=== PATIENT | female | born 1955 | race Caucasian/White ===

== ENCOUNTER → 2019-05-09 12:57 | Outpatient (BNVA) | payer MEDICARE, MEDICAID, SELFPAY | PROVIDERS: Family Provider Family Medicine; PCP Family Medicine; Visit Provider Anesthesiology | DX: M54.16 Radiculopathy, lumbar region (principal); M54.12 Radiculopathy, cervical region; M79.7 Fibromyalgia; G43.709 Chronic migraine without aura, not intractable, without status migrainosus; F17.210 Nicotine dependence, cigarettes, uncomplicated; Z79.891 Long term (current) use of opiate analgesic | CPT/HCPCS: 99214 ==

== ENCOUNTER → 2019-06-28 13:51 | Outpatient (BNVA) | payer MEDICARE, MEDICAID, SELFPAY | PROVIDERS: Family Provider Family Medicine; PCP Family Medicine; Visit Provider Anesthesiology | DX: M54.16 Radiculopathy, lumbar region (principal); M54.12 Radiculopathy, cervical region; F17.210 Nicotine dependence, cigarettes, uncomplicated; Z79.891 Long term (current) use of opiate analgesic | CPT/HCPCS: 99214 ==

== ENCOUNTER 2019-07-05 09:58 | Outpatient (CLI) | payer MEDICARE, MEDICAID, SELFPAY ==
--- NOTE | 2019-07-05 10:00 | MM_ITS ---
WS: [id number] BILATERAL SCREENING DIGITAL MAMMOGRAM WITH CAD HISTORY: SCREENING COMPARISON: 06/06/2018, 05/27/2017 and 10/03/2015 Bilateral CC and MLO views submitted. Computer aided detection analyzed. Breast composition: There are scattered areas of fibroglandular density. No suspicious masses, microc alcifications or architectural distortion. Scattered asymmetries are stable. Benign calcifications wi thin each breast. MM/[id number] IMPRESSION: BI-RADS: 2-Benign FOLLOW UP: 1 Year Follow-up
== END 2019-07-05 09:59 | disposition home or self-care (01) ==
LOC: RADSHAW 09:59
PROVIDERS: Family Provider Family Medicine; PCP Family Medicine; Visit Provider Family Medicine
DX: Z12.31 Encounter for screening mammogram for malignant neoplasm of breast (principal)
CPT/HCPCS: 77067

== ENCOUNTER → 2019-10-05 08:40 | Outpatient (BNVA) | payer MEDICARE, MEDICAID, SELFPAY | PROVIDERS: Family Provider Family Medicine; PCP Family Medicine; Visit Provider Anesthesiology | DX: M54.16 Radiculopathy, lumbar region (principal); F17.210 Nicotine dependence, cigarettes, uncomplicated; Z79.891 Long term (current) use of opiate analgesic | CPT/HCPCS: 62323; J1040; J2001; J3490 ==

== ENCOUNTER → 2019-10-26 14:44 | Outpatient (BNVA) | payer MEDICARE, MEDICAID, SELFPAY | PROVIDERS: Family Provider Family Medicine; PCP Family Medicine; Visit Provider Nurse Practitioner | DX: M54.42 Lumbago with sciatica, left side (principal); M54.41 Lumbago with sciatica, right side; M54.2 Cervicalgia; F17.210 Nicotine dependence, cigarettes, uncomplicated; Z79.891 Long term (current) use of opiate analgesic; Z71.6 Tobacco abuse counseling | CPT/HCPCS: 99214 ==

== ENCOUNTER → 2020-01-05 13:06 | Outpatient (BNVA) | payer MEDICARE, SELFPAY | PROVIDERS: Family Provider Family Medicine; PCP Family Medicine; Visit Provider Nurse Practitioner | DX: M54.42 Lumbago with sciatica, left side (principal); M54.41 Lumbago with sciatica, right side; M54.16 Radiculopathy, lumbar region; M54.12 Radiculopathy, cervical region; M79.7 Fibromyalgia; F17.210 Nicotine dependence, cigarettes, uncomplicated; Z79.891 Long term (current) use of opiate analgesic; Z71.6 Tobacco abuse counseling | CPT/HCPCS: 99213; 99214 ==

== ENCOUNTER → 2020-02-01 08:18 | Outpatient (BNVA) | payer MEDICARE, SELFPAY | PROVIDERS: Family Provider Family Medicine; PCP Family Medicine; Visit Provider Anesthesiology | DX: M54.16 Radiculopathy, lumbar region (principal); F17.210 Nicotine dependence, cigarettes, uncomplicated; Z79.891 Long term (current) use of opiate analgesic | CPT/HCPCS: 62323; J1040; J3490 ==

== ENCOUNTER → 2020-03-08 09:42 | Outpatient (BNVA) | payer MEDICARE, SELFPAY | PROVIDERS: Family Provider Family Medicine; PCP Nurse Practitioner Family; Visit Provider Anesthesiology | DX: M54.42 Lumbago with sciatica, left side (principal); M54.41 Lumbago with sciatica, right side; M54.16 Radiculopathy, lumbar region; M54.12 Radiculopathy, cervical region; F17.210 Nicotine dependence, cigarettes, uncomplicated; Z79.891 Long term (current) use of opiate analgesic | CPT/HCPCS: 99213; 99214 ==

== ENCOUNTER → 2020-05-01 10:37 | Outpatient (BNVA) | payer MEDICARE, SELFPAY | PROVIDERS: Family Provider Family Medicine; PCP Nurse Practitioner Family; Visit Provider Anesthesiology | DX: M54.16 Radiculopathy, lumbar region (principal); M54.12 Radiculopathy, cervical region; G43.709 Chronic migraine without aura, not intractable, without status migrainosus; F17.210 Nicotine dependence, cigarettes, uncomplicated; Z79.891 Long term (current) use of opiate analgesic; Z71.6 Tobacco abuse counseling | CPT/HCPCS: 99213 ==

== ENCOUNTER → 2020-07-03 10:45 | Outpatient (BNVA) | payer MEDICARE, SELFPAY | PROVIDERS: Family Provider Family Medicine; PCP Nurse Practitioner Family; Visit Provider Nurse Practitioner | DX: M54.16 Radiculopathy, lumbar region (principal); M54.12 Radiculopathy, cervical region; M79.7 Fibromyalgia; F17.210 Nicotine dependence, cigarettes, uncomplicated; Z79.891 Long term (current) use of opiate analgesic; Z71.6 Tobacco abuse counseling | CPT/HCPCS: 99213 ==

== ENCOUNTER 2020-08-02 10:59 | Outpatient (CLI) | payer MEDICARE, SELFPAY ==
--- NOTE | 2020-08-02 11:02 | MM_ITS ---
WS: [id number] BILATERAL SCREENING DIGITAL MAMMOGRAM WITH CAD HISTORY: SCREENING COMPARISON: 07/05/2019, 06/06/2018 and 05/27/2017 Bilateral CC and MLO views submitted. Computer aided detection analyzed. Breast composition: There are scattered areas of fibroglandular density. No suspicious masses, microc alcifications or architectural distortion. Central asymmetry seen on the lateral projections in each breast are stable. Benign calcifications in each breast. MM/[id number] IMPRESSION: BI-RADS: 2-Benign FOLLOW UP: 1 Year Follow-up
== END 2020-08-02 11:00 | disposition home or self-care (01) ==
LOC: RADSHAW 11:01
PROVIDERS: PCP Nurse Practitioner Family; Visit Provider Nurse Practitioner Family
DX: Z12.31 Encounter for screening mammogram for malignant neoplasm of breast (principal)
CPT/HCPCS: 77067

== ENCOUNTER → 2020-08-28 10:25 | Outpatient (BNVA) | payer MEDICARE, SELFPAY | PROVIDERS: PCP Nurse Practitioner Family; Visit Provider Nurse Practitioner | DX: M54.16 Radiculopathy, lumbar region (principal); M54.12 Radiculopathy, cervical region; G43.709 Chronic migraine without aura, not intractable, without status migrainosus; F17.210 Nicotine dependence, cigarettes, uncomplicated; Z79.891 Long term (current) use of opiate analgesic; Z71.6 Tobacco abuse counseling | CPT/HCPCS: 99214 ==

== ENCOUNTER → 2020-11-06 10:38 | Outpatient (BNVA) | payer MEDICARE, SELFPAY | PROVIDERS: PCP Nurse Practitioner Family; Visit Provider Nurse Practitioner | DX: M54.16 Radiculopathy, lumbar region (principal); M54.12 Radiculopathy, cervical region; M79.7 Fibromyalgia; F17.210 Nicotine dependence, cigarettes, uncomplicated; Z71.6 Tobacco abuse counseling; Z79.891 Long term (current) use of opiate analgesic | CPT/HCPCS: 99214; 99406 ==

== ENCOUNTER 2020-11-12 12:19 | Outpatient (CLI) | payer MEDICARE, SELFPAY ==
--- NOTE | 2020-11-12 12:26 | XR_ITS ---
WS: [id number] Chest 2 views, 11/12/2020 Clinical Data: COUGH/SMOKING GREATER THAN 40 PACK YEARS Comparison: Portable chest, 12/13/2017. Findings: No nodules, masses or effusions are seen. The heart is normal. The pulmonary vascularity is not increased. No pneumonia or pneumothorax is seen. The diaphragms are flattened. The patient's had an anterior cervical disc fusion. XR/XR chest 2V* [id number] Impression: Hyperinflation.
== END 2020-11-12 12:20 | disposition home or self-care (01) ==
PROVIDERS: PCP Nurse Practitioner Family; Visit Provider Nurse Practitioner Family
DX: R05 Cough (principal); F17.210 Nicotine dependence, cigarettes, uncomplicated
CPT/HCPCS: 71046

== ENCOUNTER 2020-11-13 09:49 | Outpatient (CLI) | payer MEDICARE, SELFPAY ==
--- NOTE | 2020-11-13 09:57 | US_ITS ---
WS: [id number] RIGHT UPPER QUADRANT ULTRASOUND HISTORY: NAUSEA/EPIGASTRIC PAIN COMPARISON: 07/10/2016 Liver: 16.6 cm in length. Normal size liver. No bile duct dilatation or mass. Gallbladder: Moderately distended gallbladder. No stones or pericholecystic fluid. No sludge. CBD: 0.2 cm Pancreas: Normal size and echogenicity. Right kidney: 11.5 cm in length. Normal size and echogenicity. No hydronephrosis or mass. Aorta and IVC: Unremarkable abdominal aorta and IVC. No ascites. US/US abdomen limited [id number] IMPRESSION: 1. No cholelithiasis or evidence for acute cholecystitis. 2. No bile duct obstruction. 3. Normal liver.
== END 2020-11-13 09:50 | disposition home or self-care (01) ==
LOC: RAD 09:51
PROVIDERS: PCP Nurse Practitioner Family; Visit Provider Nurse Practitioner Family
DX: R11.0 Nausea (principal); R10.13 Epigastric pain
CPT/HCPCS: 76705

== ENCOUNTER 2020-11-26 08:59 | Outpatient (CLI) | payer MEDICARE, SELFPAY ==
--- NOTE | 2020-11-26 09:12 | CT_ITS ---
WS: [id number] LDCT LUNG CANCER SCREENING HISTORY: NICOTINE DEPENDENCE, CIGARETTES TECHNIQUE: Axial imaging performed from the apices to 1 cm below the costophrenic angles. Coronal and sagittal reformats are submitted with axial MIP series. All CT scans at [facility] use at least one of these dose optimization techniques: automated exposure control; mA and/or kV adjustment per patient size (includes targeted exams where dose is matched to clinical indication); or iterativ e reconstruction. DLP: 55.38 mGy.cm DIvol: 1.58 mGy COMPARISON: None available. Diagnostic quality: Satisfactory Lung Nodules: No discrete lung nodules are identified. No mass or endobronchial lesion. Lungs: Moderate pulmonary hyperexpansion. Peripheral increased interstitial thickening and reticulati ons are identified. There are also a few scattered areas of minimal groundglass attenuation. Heart: Very slightly enlarged heart. Mild LEFT atrial enlargement. No effusion. Other findings: Mild scattered plaque within the thoracic aorta. Small hiatal hernia. CT/CT lung screening [id number] IMPRESSION: LUNG-RADS: 1-Negative FOLLOW UP: 12 Month: Continue annual screening with LDCT OTHER FINDINGS (S MODIFIER): None.
== END 2020-11-26 09:00 | disposition home or self-care (01) ==
PROVIDERS: PCP Nurse Practitioner Family; Visit Provider Nurse Practitioner Family
DX: Z12.2 Encounter for screening for malignant neoplasm of respiratory organs (principal); F17.210 Nicotine dependence, cigarettes, uncomplicated; I51.7 Cardiomegaly
CPT/HCPCS: 71271

== ENCOUNTER → 2020-12-05 10:46 | Outpatient (BNVA) | payer MEDICARE, SELFPAY | PROVIDERS: PCP Nurse Practitioner Family; Visit Provider Nurse Practitioner | DX: G89.29 Other chronic pain (principal); M54.16 Radiculopathy, lumbar region; M54.12 Radiculopathy, cervical region; G43.709 Chronic migraine without aura, not intractable, without status migrainosus; F17.210 Nicotine dependence, cigarettes, uncomplicated; Z79.891 Long term (current) use of opiate analgesic; Z71.6 Tobacco abuse counseling | CPT/HCPCS: 99214 ==

== ENCOUNTER → 2021-01-29 10:47 | Outpatient (BNVA) | payer MEDICARE, SELFPAY | PROVIDERS: PCP Nurse Practitioner Family; Visit Provider Nurse Practitioner | DX: M54.16 Radiculopathy, lumbar region (principal); M54.12 Radiculopathy, cervical region; G43.709 Chronic migraine without aura, not intractable, without status migrainosus; M79.7 Fibromyalgia; F17.210 Nicotine dependence, cigarettes, uncomplicated; Z71.6 Tobacco abuse counseling; Z79.891 Long term (current) use of opiate analgesic | CPT/HCPCS: 99214 ==

== ENCOUNTER → 2021-03-26 10:27 | Outpatient (BNVA) | payer MEDICARE, SELFPAY | PROVIDERS: PCP Nurse Practitioner Family; Visit Provider Anesthesiology | DX: M54.16 Radiculopathy, lumbar region (principal); M25.551 Pain in right hip; M25.552 Pain in left hip; M79.7 Fibromyalgia; M54.12 Radiculopathy, cervical region; F17.200 Nicotine dependence, unspecified, uncomplicated; Z79.891 Long term (current) use of opiate analgesic; Z71.6 Tobacco abuse counseling | CPT/HCPCS: 99214 ==

== ENCOUNTER 2021-07-15 12:25 | Outpatient (CLI) | payer MEDICARE, MEDICAID, SELFPAY ==
--- NOTE | 2021-07-15 12:30 | MR_ITS ---
WS: [id number] MRI LUMBAR SPINE NONCONTRAST HISTORY: LUMBAR SPINAL STENOSIS COMPARISON: 09/13/2013 TECHNIQUE: Sagittal and axial multisequence imaging is submitted. Normal lumbar alignment. No fracture or marrow edema. Mild disc desiccation without loss of height throughout the lumbar spine. Small hypertrophic endplate osteophytes at all levels. Conus terminates normally at L1. L1-L2: Mild annular disc bulge and osteophytic ridging. No stenosis. Slight progression of the bulgin g since the prior study. L2-L3: RIGHT foraminal annular fissure. No stenosis or focal disc protrusions. There is very mild taina rowing of the thecal sac. L3-L4: Mild annular disc bulging and mild ligamentum flavum and facet arthritis. Mild narrowing of th e central canal and subarticular recesses no high-grade stenosis. L4-L5: Mild annular disc bulge with a central disc protrusion. Ligamentum flavum hypertrophy and face t arthritis. Mild central canal and subarticular recess stenosis. Stenosis is mildly progressed since the prior study. L5-S1: Central disc protrusion extends into the RIGHT subarticular recess and foramen. Disc is contac ting and slightly displacing the RIGHT S1 nerve root. There is also minimal contact upon the LEFT S1 nerve root. Mild ligamentum flavum hypertrophy. Visualized retroperitoneal structures are normal. There is mild atherosclerotic changes within the ao rta. MR/MR lumbar spine wo con* [id number] IMPRESSION: 1. Small RIGHT central disc protrusion which extends into the RIGHT subarticul ar recess and foramen at L5-S1. Limited to the prior study. There is minimal di sc contact on the S1 nerve roots but greatest on the RIGHT. Similar to the prio r study. 2. Mild central and subarticular recess stenosis at L4-5 with minimal progress ion since the prior study. 3. RIGHT annular fissure L2-3. 4. Mild central and subarticular recess stenosis at L3-4.
== END 2021-07-15 12:26 | disposition home or self-care (01) ==
LOC: RAD 12:26
PROVIDERS: PCP Nurse Practitioner Family; Visit Provider Anesthesiology Pain Medicine
DX: M48.061 Spinal stenosis, lumbar region without neurogenic claudication (principal); M51.27 Other intervertebral disc displacement, lumbosacral region; Q05.7 Lumbar spina bifida without hydrocephalus
CPT/HCPCS: 72148

== ENCOUNTER 2021-08-04 15:09 | Outpatient (CLI) | payer MEDICARE, MEDICAID, SELFPAY ==
--- NOTE | 2021-08-04 15:16 | MM_ITS ---
WS: [id number] BILATERAL 3D TOMOSYNTHESIS DIGITAL SCREENING MAMMOGRAPHY WITH CAD CLINICAL INFORMATION: SCREENING HISTORY: Screening mammogram. No current complaints. COMPARISON: August 02, 2020 TECHNIQUE: Bilateral CC and MLO views. FINDINGS: Scattered fibroglandular densities bilaterally. Punctate and lucent centered calcifications. No suspi cious focal mass, asymmetry, calcifications, or architectural distortion. No evidence of malignancy. MM/[place] [id number] IMPRESSION: BI-RADS: 2-Benign FOLLOW UP: 1 Year Follow-up Recommend return to annual screening mammography.
== END 2021-08-04 15:10 | disposition home or self-care (01) ==
PROVIDERS: PCP Nurse Practitioner Family; Visit Provider Nurse Practitioner Family
DX: Z12.31 Encounter for screening mammogram for malignant neoplasm of breast (principal)
CPT/HCPCS: 77063; 77067

== ENCOUNTER 2021-11-27 12:55 | Outpatient (CLI) | payer MEDICARE, SELFPAY ==
--- NOTE | 2021-11-27 13:08 | XR_ITS ---
WS: [id number] Chest 2 views, 11/27/2021 Clinical Data: R CHEST PAIN Comparison: PA and lateral chest, 11/12/2020. Findings: No nodules, masses or effusions are seen. The heart is normal. The pulmonary vascularity is not increased. No pneumonia or pneumothorax is seen. The diaphragms are flattened. The aortic arch a nd descending thoracic aorta show mild calcification and tortuosity. There is an anterior cervical di sc fusion. XR/XR chest 2V* [id number] Impression: Atherosclerosis and hyperinflation.
== END 2021-11-27 12:56 | disposition home or self-care (01) ==
LOC: RAD 13:04
PROVIDERS: PCP Nurse Practitioner Family; Visit Provider Nurse Practitioner Family
DX: R07.9 Chest pain, unspecified (principal); I70.90 Unspecified atherosclerosis
CPT/HCPCS: 71046

== ENCOUNTER 2022-04-29 12:27 | Outpatient (CLI) | payer MEDICARE, MEDICAID, SELFPAY ==
--- NOTE | 2022-04-29 12:35 | CT_ITS ---
WS: [id number] LDCT LUNG CANCER SCREENING TECHNIQUE: Noncontrast CT of the chest with coronal and sagittal reformatted images. CLINICAL INFORMATION: NICOTINE DEPENDENCE CIGARETTES COMPARISON: CT November 26, 2020 DLP: 75.30 mGy.cm DIvol: Mean CTDIvol: 1.60 (mGy) All CT scans at [facility] use at least one of these dose optimization techniques: automat ed exposure control; mA and/or kV adjustment per patient size (includes targeted exams where dose is matched to clinical indication); or iterative reconstruction. FINDINGS: Hyperinflation. Cardiomegaly. Fibrosis in the lung apices. Chronic appearing interstitial thickening with a few groundglass opacities in both lungs similar compared to previous. Calcific granulomas RIGH T upper lobe at the lung apex. Small esophageal hiatal hernia. Normal caliber thoracic aorta. Calcified anterior mediastinal lymph n odes. Normal caliber descending thoracic aorta. No axillary lymphadenopathy. Adrenal glands are normal. Splenic granulomas. Partially visualized hepatomegaly. Mild thoracic curve . CT/CT lung screening [id number] IMPRESSION: LUNG-RADS: 1-Negative FOLLOW UP: 12 Month: Continue annual screening with LDCT
== END 2022-04-29 12:28 | disposition home or self-care (01) ==
LOC: RAD 12:28
PROVIDERS: PCP Nurse Practitioner Family; Visit Provider Nurse Practitioner Family
DX: Z12.2 Encounter for screening for malignant neoplasm of respiratory organs (principal); F17.210 Nicotine dependence, cigarettes, uncomplicated
CPT/HCPCS: 71271

== ENCOUNTER 2022-06-18 23:05 | Inpatient (IN) | payer MEDICARE, MEDICAID, SELFPAY ==
--- NOTE | 2022-06-18 23:09 | CTR_ITS ---
PROCEDURE INFORMATION: Exam: CT Abdomen And Pelvis With Contrast Exam date and time: 06/19/2022 12:17 AM Age: 67 years old Clinical indication: Abdominal pain; Generalized; Prior surgery; Surgery type: Appy; Patient HX: C/O severe diffuse abd pain. TECHNIQUE: Imaging protocol: Computed tomography of the abdomen and pelvis with contrast. Radiation optimization: All CT scans at this facility use at least one of these dose optimization techniques: automated exposure control; mA and/or kV adjustment per patient size (includes targeted exams where dose is matched to clinical indication); or iterative reconstruction. Contrast material: OMNI 350; Contrast volume: 100 ml; Contrast route: INTRAVENOUS (IV); REPORTING DATA: Count of CT and Cardiac NM exams in prior 12 months: This patient has received [address] and 0 known cardiac nuclear medicine studies in the 12 months prior to the current study. COMPARISON: CT lung screening [id number] 04/29/2022 12:50 PM RADIATION DOSE METRICS: Total DLP (mGy-cm): 1040.63 FINDINGS: Lungs: Emphysematous changes. Bibasilar atelectasis versus infiltrate. Liver: Normal. No mass. Gallbladder and bile ducts: Common bile duct is somewhat dilated to 12 mm with intrahepatic biliary dilation, negative for obstructing lesion seen, MRCP could further evaluate this. Gallbladder is distended, ultrasound could further evaluate this. Pancreas: Normal. No ductal dilation. Spleen: Normal. No splenomegaly. Adrenal glands: Normal. No mass. Kidneys and ureters: Right kidney cysts, negative for follow-up advised. Stomach and bowel: Transverse and left colon wall thickening may be due to nondistention, a colitis is also a consideration depending on the clinical scenario. Diverticulosis without diverticulitis. Appendix: No evidence of appendicitis. Intraperitoneal space: Unremarkable. No free air. No significant fluid collection. Vasculature: Fusiform infrarenal abdominal aortic aneurysm measuring up to 2.6 cm without rupture. Lymph nodes: Unremarkable. No enlarged lymph nodes. Urinary bladder: Unremarkable as visualized. Reproductive: Unremarkable as visualized. Bones/joints: Unremarkable. No acute fracture. Soft tissues: Small umbilical hernia containing omentum without bowel. CT/CT abdomen pelvis w con* [id number] IMPRESSION: 1. Common bile duct is somewhat dilated to 12 mm with intrahepatic biliary dilation, negative for obstructing lesion seen, MRCP could further evaluate this. 2. Transverse and left colon wall thickening may be due to nondistention, a colitis is also a consideration depending on the clinical scenario. 3. Right kidney cysts, negative for follow-up advised. 4. Diverticulosis without diverticulitis. 5. Small umbilical hernia containing omentum without bowel. 6. Emphysematous changes. 7. Bibasilar atelectasis versus infiltrate. 8. Gallbladder is distended, ultrasound could further evaluate this. 9. Fusiform infrarenal abdominal aortic aneurysm measuring up to 2.6 cm without rupture. COMMENTS: Consistent with the [employer]'s Incidental Findings Committee white paper (J Am Judi Radiol 2018): Any incidental renal lesion less than 1 cm or classified as too small to characterize, or any incidental cystic renal lesion characterized as simple-appearing, is likely benign. No follow-up imaging is recommended for these lesions per consensus recommendations based on imaging criteria.
[2022-06-18 23:10] VITALS: BP 173/76; PULSE 75; RESP 17; TEMP 37.1; O2SAT 94
--- NOTE | 2022-06-18 23:12 | W.ED.ABDPA2 ---
HPI - Abdominal Pain General: Chief Complaint: Abdominal Pain Stated Complaint: ABD PAIN Time Seen by Provider: 06/18/22 23:05 Source: patient and EMS Mode of arrival: EMS Limitations: no limitations History of Present Illness: 67-year-old female states has been having diffuse abdominal pain since 6 states the pain is severe she rates it a 9 out of 10 she had nausea no vomiting denies any diarrhea. She denies any radiation of pain denies any chest pain. She denies any fevers she had had a ruptured fallopian tube many years ago no other abdominal surgery besides a period Associated Symptoms: Denies chills, dysuria and fever(s) Review of Systems Const: Denies: fever(s), chills, body aches or change in appetite Eyes: Denies: blurry vision or eye discomfort ENMT: Denies: throat pain or dental pain Card: Denies: chest pain Resp: Denies: dyspnea GI: Reports: abdominal pain : Denies: dysuria Musc: Denies: neck pain or back pain Skin/Breast: Denies: rash Neuro: Denies: headache(s) Psych: Denies: depression Pascual/Lymph: Denies: easy bruising All/Imm: Denies: urticaria PFSH ED PFSH: Medical History Back pain, lumbosacral Cervical radiculopathy Chronic lumbar radiculopathy Chronic migraine Encounter for long-term use of opiate analgesic Fibromyalgia Neck pain Opioid contract exists Smoker unmotivated to quit Tobacco abuse Surgical History S/P appendectomy S/P cervical spinal fusion S/P colonoscopy 04/21/19 - Diverticulosis. Repeat in 5 years. Family History Mother Cancer Father Lung disease Social History Smoking and tobacco status: current every day smoker cigarettes Packs smoked per day: 1 Alcohol intake: never Lives independently: Yes Physical Exam Const: COMMON NORMALS: no acute distress, patient oriented x3 and healthy appearing HENMT: COMMON NORMALS: normocephalic and atraumatic HEAD & SCALP: normocephalic and atraumatic Eye: COMMON NORMALS: Equal, round and reactive pupils present and EOMs intact bilaterally PUPIL: Yes Equal, round and reactive pupils present Neck/C-Spine: COMMON NORMALS: full ROM and supple Chest: COMMONS NORMALS: normal inspection of the chest and normal palpation of entire chest wall Resp: COMMON NORMALS: normal respiratory effort, No retractions, No use of accessory muscles and clear to auscultation bilaterally AUSCULTATION: clear to auscultation bilaterally Cardio: COMMON NORMALS: regular rate, regular rhythm and No murmurs present (Cardio) RATE: regular rate RHYTHM: regular rhythm GI: COMMON NORMALS: Normal to inspection, nondistended, normoactive bowel sounds present, Soft to palpation and no masses PALPATION: Yes Soft to palpation OTHER: diffuse tenderness Extremity: COMMON NORMALS: normal to inspection and full ROM Neuro: COMMON NORMALS: patient oriented x3, moves all extremities and no focal motor deficits Psych: COMMON NORMALS: mental status grossly normal, Normal thought process present and cooperative THOUGHT PROCESS: Normal thought process present Skin: COMMON NORMALS: no rashes or lesions noted and no wounds GENERAL SKIN EXAM: no rashes or lesions noted Course Vital Signs: Vital signs: Vital Signs Temperature 98.8 F 06/18/22 23:10 Pulse Rate 97 06/19/22 00:45 Respiratory Rate 16 06/19/22 00:45 Blood Pressure 196/11 06/19/22 00:45 Pulse Oximetry 90 06/19/22 00:45 Oxygen Delivery Me thod 06/19/22 00:45 MDM - Abdominal Pain Medical Decision Making Patient presents here with abdominal pain does have an elevated lipase consistent with pancreatitis MRCP shows no signs of biliary obstruction will admit at this time. Lab Data 06/18/22 22:51 06/18/22 22:51 Labs/Radiology: Radiology Impressions Abdomen/Pelvis CT 06/18/22 23:09 IMPRESSION: 1. Common bile duct is somewhat dilated to 12 mm with intrahepatic biliary dilation, negative for obstructing lesion seen, MRCP could further evaluate this. 2. Transverse and left colon wall thickening may be due to nondistention, a colitis is also a consideration depending on the clinical scenario. 3. Right kidney cysts, negative for follow-up advised. 4. Diverticulosis without diverticulitis. 5. Small umbilical hernia containing omentum without bowel. 6. Emphysematous changes. 7. Bibasilar atelectasis versus infiltrate. 8. Gallbladder is distended, ultrasound could further evaluate this. 9. Fusiform infrarenal abdominal aortic aneurysm measuring up to 2.6 cm without rupture. COMMENTS: Consistent with the [employer]'s Incidental Findings Committee white paper (J Am Judi Radiol 2018): Any incidental renal lesion less than 1 cm or classified as too small to characterize, or any incidental cystic renal lesion characterized as simple-appearing, is likely benign. No follow-up imaging is recommended for these lesions per consensus recommendations based on imaging criteria. Cholangiopancreatography MRI 06/19/22 00:47 IMPRESSION: No convincing MRCP evidence of biliary obstruction. Laboratory Results WBC 7.5 10^3/uL (4.0-10.0) 06/18/22 22:51 RBC 4.42 10^6/uL (4.1-5.3) 06/18/22 22:51 Hgb 14.4 g/dL (11.5-15.3) 06/18/22 22:51 Hct 43.5 % (37.0-47.0) 06/18/22 22:51 MCV 98.4 fl (81-99) 06/18/22 22:51 MCH 32.6 pg (28.0-34.0) 06/18/22 22:51 MCHC 33.1 g/dL (30.0-36.0) 06/18/22 22:51 RDW 14.4 % (12.1-15.1) 06/18/22 22:51 Plt Count 167 10^3/cmm (130-400) 06/18/22 22:51 MPV 10.2 fL (7.4-10.4) 06/18/22 22:51 Neut % (Auto) 77.2 % 06/18/22 22:51 Lymph % (Auto) 17.7 % 06/18/22 22:51 [place] % (Auto) 1.1 % 06/18/22 22:51 Eos % (Auto) 3.5 % 06/18/22 22:51 Baso % (Auto) 0.4 % 06/18/22 22:51 Neut # (Auto) 5.80 10^3/uL (1.8-7.7) 06/18/22 22:51 Lymph # (Auto) 1.3 10^3/uL (0.8-4.8) 06/18/22 22:51 [place] # (Auto) 0.1 10^3/uL (0.2-0.9) L 06/18/22 22:51 Eos # (Auto) 0.3 10^3/uL (0.0-0.8) 06/18/22 22:51 Baso # (Auto) 0.0 10^3/uL (0.0-0.1) 06/18/22 22:51 Nucleated RBC % (auto) 0 % 06/18/22 22:51 Nucleated RBCs # 0.0 /100WBC 06/18/22 22:51 Sodium 136 mmol/L (136-145) 06/18/22 22:51 Potassium 3.4 mmol/L (3.5-5.1) L 06/18/22 22:51 Chloride 98 mmol/L (98-107) 06/18/22 22:51 Carbon Dioxide 26 mmol/L (22-29) 06/18/22 22:51 Anion Gap 15.4 (5-19) 06/18/22 22:51 BUN 10 mg/dL (8-23) 06/18/22 22:51 Creatinine 0.9 mg/dL (0.5-0.9) 06/18/22 22:51 GFR Calculation 62.1 mL/min (90-130) L 06/18/22 22:51 Glucose 134 mg/dL (65-115) H 06/18/22 22:51 Calculated Osmolality 283 mOsm/kg (285-295) L 06/18/22 22:51 Lactate 2.3 mmol/L (0.5-2.2) H 06/18/22 23:30 Calcium 9.5 mg/dL (8.5-10.5) 06/18/22 22:51 Total Bilirubin 1.2 mg/dL (0.15-1.2) 06/18/22 22:51 AST 125 U/L (0-32) H 06/18/22 22:51 ALT 76 U/L (0-33) H 06/18/22 22:51 Alkaline Phosphatase 161 U/L (35-105) H 06/18/22 22:51 Total Protein 7.8 g/dL (6.6-8.7) 06/18/22 22:51 Albumin 3.8 g/dL (3.5-5.2) 06/18/22 22:51 Globulin 4.0 g/dL (1.3-4.6) 06/18/22 22:51 Lipase > 3900 U/L (13-60) H 06/18/22 22:51 Urine Color Yellow (Yellow) 06/19/22 01:03 Urine Appearance Clear (CLEAR) 06/19/22 01:03 Urine pH 5 (5-7) 06/19/22 01:03 Ur Specific [place] 1.010 (1.005-1.030) 06/19/22 01:03 Urine Protein Neg (Negative) 06/19/22 01:03 Urine Glucose (UA) Norm (Normal) 06/19/22 01:03 Urine Ketones Negative (Negative) 06/19/22 01:03 Urine Blood 2+ (Negative) H 06/19/22 01:03 Urine Nitrate Negative (Negative) 06/19/22 01:03 Urine Bilirubin Neg (Negative) 06/19/22 01:03 Urine Urobilinogen Norm mg/dL (Negative) 06/19/22 01:03 Ur Leukocyte Esterase Negative (Negative) 06/19/22 01:03 Urine RBC 0-4 /hpf (0-2) H 06/19/22 01:03 Urine WBC 0-4 /hpf (0-5) H 06/19/22 01:03 Ur Squamous Epith Cells 0-4 /hpf (0-5) H 06/19/22 01:03 Amorphous Sediment Not Reportable 06/19/22 01:03 Urine Bacteria Trace /hpf (NONE) 06/19/22 01:03 Discharge Plan Discharge Patient Disposition: Admitted As Inpatient Clinical Impression: Pancreatitis Condition: Stable Coding Level of Care Code ED Wind Tunnel Technician for Nubia Olmstead
[2022-06-18] MEDS: sodium chloride 0.9% 1,000 ML 999 ML IV (23:18)
[2022-06-18] MEDS: ondansetron 2 mg/ML SDV 2 mL 4 MG IVP (23:18)
[2022-06-18 23:24] LABS: Basophils % 0.4 %; Eosinophils # 0.3 10^3/uL (0.0-0.8); Eosinophils % 3.5 %; Hematocrit 43.5 % (37.0-47.0); Hemoglobin 14.4 g/dL (11.5-15.3); Lymphocytes # 1.3 10^3/uL (0.8-4.8); Lymphocytes % 17.7 %; Mean Corpuscular HGB Conc 33.1 g/dL (30.0-36.0); Mean Corpuscular Hemoglobin 32.6 pg (28.0-34.0); Mean Corpuscular Volume 98.4 fl (81-99); Mean Platelet Volume 10.2 fL (7.4-10.4); Monocytes # 0.1 10^3/uL (0.2-0.9); Monocytes % 1.1 %; Neutrophils % 77.2 %; Nucleated Red Blood Cells % 0 %; Platelet Count 167 10^3/cmm (130-400); Red Blood Count 4.42 10^6/uL (4.1-5.3); Red Cell Distribution Width 14.4 % (12.1-15.1); White Blood Count 7.5 10^3/uL (4.0-10.0)
[2022-06-18 23:28] VITALS: RESP 24; O2SAT 95
[2022-06-18] MEDS: HYDROmorphone 1 mg/mL INJ 1 mL IVP (23:28)
--- NOTE | 2022-06-18 23:30 | ECG_ITS ---
[facility] Test Date: 2022-06-18 Pat Name: Elizabeth Watson Department: Room: Gender: Female Butcher Head: : 1955 Requested By: Jasson Newman Order Number: [id number] Micha MD: Srinath Christian M.D. Measurements Intervals [place] Rate: 86 P: 54 DC: 154 QRS: 64 QRSD: 91 T: 33 QT: 372 QTc: 447 Interpretive Statements SINUS RHYTHM POSSIBLE RIGHT VENTRICULAR CONDUCTION DELAY [RSR (QR) IN V1/V2] NONSPECIFIC T-WAVE ABNORMALITY Compared to ECG 12/13/2017 11:42:08 T-wave abnormality now present Electronically Signed On 06-19-2022 16:44:33 [employer]AMPLE [employer]OX [employer] by Srinath Christian M.D. [email or web address]
[2022-06-18 23:48] LABS: Alanine Aminotransferase 76 U/L (0-33); Albumin Level 3.8 g/dL (3.5-5.2); Alkaline Phosphatase 161 U/L (35-105); Anion Gap 15.4 (5-19); Aspartate Amino Transferase 125 U/L (0-32); Blood Urea Nitrogen 10 mg/dL (8-23); Calcium 9.5 mg/dL (8.5-10.5); Carbon Dioxide 26 mmol/L (22-29); Chloride 98 mmol/L (98-107); Glomerular Filtration Rate 62.1 mL/min (90-130); Glucose 134 mg/dL (65-115); Osmolality Calculated 283 mOsm/kg (285-295); Potassium 3.4 mmol/L (3.5-5.1); Sodium 136 mmol/L (136-145); Total Bilirubin 1.2 mg/dL (0.15-1.2); Total Protein 7.8 g/dL (6.6-8.7)
[2022-06-19] VITALS (13 sets, daily range): BP systolic 131–196; BP diastolic 11–95; PULSE 86–97; RESP 16–20; TEMP 36.6–37.1; O2SAT 90–99
[2022-06-19 00:08] LABS: Lactate (Lactic Acid level) 2.3 mmol/L (0.5-2.2)
[2022-06-19] MEDS: iohexol 350 mg/mL 500 mL Btl (per mL) IV (00:20)
[2022-06-19] MEDS: HYDROmorphone 1 mg/mL INJ 1 mL IVP (00:39)
[2022-06-19] MEDS: sodium chloride 0.9% 1,000 ML 999 ML IV (00:44)
--- NOTE | 2022-06-19 00:47 | MRR_ITS ---
PROCEDURE INFORMATION: Exam: MR Abdomen Without Contrast Exam date and time: 06/19/2022 1:38 AM Age: 67 years old Clinical indication: Abdominal pain; Additional info: Abd pain TECHNIQUE: Imaging protocol: Magnetic resonance imaging of the abdomen without contrast. COMPARISON: CT abdomen pelvis w con* [id number] 06/19/2022 12:17 AM FINDINGS: Liver: No mass. Gallbladder and bile ducts: Gallbladder is mildly distended. No definite wall thickening or pericholecystic fluid. No intraluminal signal voids. Common bile duct is mildly dilated with distal tapering. No intraluminal signal void identified. Pancreas: Unremarkable. No ductal dilation. Spleen: Unremarkable. No splenomegaly. Adrenal glands: Unremarkable. No mass. Kidneys and ureters: Unremarkable. No solid mass. No hydronephrosis. Stomach and bowel: Visualized stomach and intestines are unremarkable. Intraperitoneal space: No free fluid. Vasculature: No abdominal aortic aneurysm. Bones/joints: Unremarkable. Soft tissues: Unremarkable. MR/MR MRCP [id number] IMPRESSION: No convincing MRCP evidence of biliary obstruction.
[2022-06-19 01:16] LABS: Add Urine Culture? No; Add Urine Microscopic? YES; Bacteria Urine TRACE /hpf; Bilirubin Urine Neg (Negative); Blood Urine 2+ (Negative); Glucose Urine UA Norm (Normal); Ketones Urine Negative (Negative); Leukocyte Esterase Urine Negative (Negative); Nitrate Urine Negative (Negative); Protein Urine Neg (Negative); RBC Urine 0-4 /hpf (0-2); Squamous Epithelial Cell Urine 0-4 /hpf (0-5); Urine Appearance Clear (CLEAR); Urine Color Yellow (Yellow); Urobilinogen Urine Norm (Negative); WBC Urine 0-4 /hpf (0-5); pH Urine 5 (5-7)
[2022-06-19] MEDS: LORazepam 2 mg/mL INJ 1 mL 0.5 MG IVP (01:25)
[2022-06-19 03:36] LABS: Triglycerides 127 mg/dL (0-150)
--- NOTE | 2022-06-19 03:36 | PM.HP ---
Providers/Chief Complaint Primary Care Provider: Isabelle Moss Chief Complaint: ABD PAIN History of Present Illness Elizabeth Watson is a 67 year old female with past medical history of hypertension, chronic pain management for fibromyalgia who follows up with pain clinic presented to the ER because of epigastric abdominal pain radiating to flanks and back for more than 24 hours along with nausea and vomiting. In the ER she was found to have acute pancreatitis. Patient denies any alcohol abuse. Does states she consumes beer occasionally. Smokes 1 pack of cigarettes a day. Denies any history of gallstones. Denies any new herbal products but has been taking more uknp-jju-qqliiot pain medications including naproxen and ibuprofen for tooth ache. Review of Systems General: Reports: 10 or more systems reviewed and unremarkable except in HPI and below Const: Denies: fever(s), chills, body aches, change in appetite, change in weight, malaise, night sweats, diaphoresis, change in sleep pattern, daytime sleepiness or snoring Eyes: Denies: change in vision, blurry vision, photophobia, eye discomfort or eye discharge ENMT: Denies: throat pain, enlarged tonsils, hoarseness, mouth pain, oral sores, dry mouth, tinnitus, nasal congestion or post nasal drip Card: Denies: chest pain, palpitations, irregular heart rhythm, edema, swelling of feet/ankles, lightheadedness, syncope, pre-syncope, dyspnea on exertion, orthopnea, leg pain with exertion or acrocyanosis Resp: Denies: dyspnea, productive cough, non-productive cough, wheezing, stridor, pain on inspiration, change in phlegm color, hemoptysis or chest congestion GI: Denies: abdominal pain, nausea, vomiting, hematemesis, coffee ground emesis, dysphagia, heartburn, diarrhea, constipation, bloating, GI cramping, change in bowel habits, pain on defecation, hematochezia or melena : Denies: flank pain, dysuria, urinary frequency, urinary urgency, urinary hesitancy, nocturia or hematuria Musc: Denies: neck pain, back pain, extremity pain, joint pain, joint swelling, joint redness, joint stiffness or limited range of motion Neuro: Denies: headache(s), numbness in extremities, weakness in extremities, sensory changes, lack of coordination, difficulty walking, frequent falls, dizziness, vertigo, confusion, Slurred speech present, difficulty communicating thoughts or seizure-like activity Psych: Denies: anxiety, depression, mood swings, panic attacks, hopelessness or irritability Endo: Denies: polyuria, polydipsia, tired all the time, cold intolerance, excessive sweating, flushing or heat intolerance Pascual/Lymph: Denies: easy bruising or easy bleeding All/Imm: Denies: tongue swelling, facial swelling or acute wheezing Medications/Allergies Home Medications Medication Instructions Recorded Confirmed Last Taken Type multivitamin 1 cap PO QAM 05/08/19 07/25/21 Unknown History naproxen sodium 220 mg tablet 220 mg PO BID PRN 05/08/19 07/25/21 Unknown History (Aleve) simethicone 125 mg capsule (Gas 125 mg PO QID 05/08/19 07/25/21 Unknown History Relief (simethicone)) metoprolol succinate 50 mg capsule 50 mg PO DAILY 06/28/19 07/25/21 Unknown History sprinkle, ext. release 24 hr esomeprazole magnesium 20 mg 20 mg PO DAILY 08/28/20 07/25/21 Unknown History capsule,delayed release lysine 1,000 mg tablet 1,000 mg PO ONCE PRN 08/28/20 07/25/21 Unknown History oxycodone 15 mg tablet 15 mg PO QID PRN pain 30 days #120 01/29/21 07/25/21 Unknown Rx tabs tizanidine 4 mg tablet 4 mg PO .BEDTIME PRN muscle 03/26/21 07/25/21 Unknown Rx spasticity 30 days #60 tabs oxycodone 20 mg tablet 20 mg PO QID PRN pain 30 days #120 04/07/21 07/25/21 Unknown Rx tabs Allergies Allergy/AdvReac Type Severity Reaction Status Date / Time gabapentin Allergy ADR-Dizzine Verified 06/05/22 08:58 ss hydrocodone Allergy ADR-Nausea Verified 06/05/22 08:58 milnacipran [From Savella] Allergy does not Verified 06/05/22 08:58 remember pregabalin [From Lyrica] Allergy does not Verified 06/05/22 08:58 remember reaction PFSH Acute PFSH: Medical History (Updated 06/19/22 @ 06:50 by Romero Singh MD) Back pain, lumbosacral Cervical radiculopathy Chronic lumbar radiculopathy Chronic migraine Encounter for long-term use of opiate analgesic Fibromyalgia Hypertension Neck pain Opioid contract exists Smoker unmotivated to quit Tobacco abuse Surgical History (Updated 06/19/22 @ 06:50 by Romero Singh MD) History of left oophorectomy History of lumpectomy S/P appendectomy S/P cervical spinal fusion S/P colonoscopy 04/21/19 - Diverticulosis. Repeat in 5 years. Family History Mother Cancer Father Lung disease Social History Smoking and tobacco status: current every day smoker cigarettes Packs smoked per day: 1 Alcohol intake: never Lives independently: Yes Vitals/I&O/Wt Last Vital Signs Temp 98.8 F 06/18/22 23:10 Pulse 97 06/19/22 00:45 Resp 16 06/19/22 00:45 BP 196/11 06/19/22 00:45 Pulse Ox 90 06/19/22 00:45 O2 Del Method 06/19/22 00:45 Physical Exam Narrative: General: No acute distress, AO x3 HEENT: PERRLA, pupils bilaterally equal and reactive Chest: Normal vesicular breath sounds, no added sounds, equal good air entry bilaterally CVS: S1-S2 regular, no murmurs, no tachycardia, no gallops, no rubs Abdomen: Soft, tender in epigastric, no organomegaly, bowel sounds present Neuro: No focal deficits, no facial deformity, AO x3, power 5/5 in all limbs Data 06/18/22 22:51 06/18/22 22:51 A&P Assessment and plan (1) Pancreatitis: As seen on CT abdomen pelvis. Lipase around 3900 Concern for dilated common bile duct. MRCP done to rule out evidence of biliary obstruction. Most likely in setting of recent passed gallstone versus secondary to increase oral aarz-cgl-hdonygs pain medications. Patient is also a smoker. Conservative treatment. NPO. IV hydration with D5 NS at 75 cc/h. Pain management with Dilaudid 0.4 every 4 hourly. Given aggressive ylul-dkz-teuaaaq oral pain medication recently for now we will start on Protonix twice daily, Zofran as needed (2) Smoker unmotivated to quit: Offered nicotine patch. (3) Encounter for long-term use of opiate analgesic: Takes oxycodone 20 mg 4 times daily as needed as per pain management team. Pain medications been decreased as an outpatient. (4) Hypertension: Goal blood pressure less than 140/90 mmHg. Takes metoprolol succinate 50 mg daily at home. Switch to metoprolol IV every 6 hourly. To be held for heart rate of less than 100 bpm. Plan NPO. Protonix for PUD prophylaxis Lovenox for DVT prophylaxis Attestations Medical Necessity Statement*: Admission for more than 2 midnights for management of acute pancreatitis. and Moderate Time for a total of 60 minutes, includes reviewing past or interval history, examining/interviewing patient, placing orders, counseling patient/family/other support, updating patient/family/other support, discussing plan of care with staff, communicating with other healthcare providers, documenting encounter and coordinating care Diagnoses Pancreatitis K85.90 Smoker unmotivated to quit F17.200 Encounter for long-term use of opiate analgesic Z79.891 Hypertension I10
[2022-06-19 04:02] LABS: C Reactive Protein 14.6 mg/L (0.0-4.9); Thyroid Stimulating Hormone 2.16 uIU/mL (0.27-4.20)
[2022-06-19] MEDS: metoprolol tartrate 1 mg/1 mL SDV 5 mL 5 MG IVP ×4 (04:03→21:01)
[2022-06-19 05:03] LABS: Iron 90 ug/dL (37-145); Percent Saturation 27.7 % (20-50); Total Iron Binding Capacity 324 mcg/dl; Unsaturated Iron Binding 234 ug/dL (112-347)
[2022-06-19 05:18] LABS: Folate Level 5.7 ng/mL (4.8-37.3)
[2022-06-19 05:19] LABS: Vitamin B12 611 pg/mL (232-1245)
[2022-06-19] MEDS: HYDROmorphone 1 mg/mL INJ 1 mL 0.4 MG IVP ×3 (05:27→22:16)
[2022-06-19] MEDS: enoxaparin 40 mg/0.4 mL Syringe SUBCUT (05:28)
[2022-06-19] MEDS: dextrose 5%-sod chloride 0.9% 1,000 ML 75 ML IV ×2 (05:28→18:15)
[2022-06-19] MEDS: pantoprazole 40 mg SDV IVP ×2 (06:42→19:04)
--- NOTE | 2022-06-19 07:16 | US_ITS ---
WS: [id number] RIGHT UPPER QUADRANT ULTRASOUND HISTORY: ruq pain COMPARISON: 11/13/2020, CT 06/19/2022 Liver: 17.4 cm in length. Mildly enlarged liver. Coarsened echotexture throughout the liver. No intra hepatic duct dilatation is evident by ultrasound. Portal Vein: Normal hepatopetal flow with monophasic waveform. Gallbladder: Normally distended gallbladder with nonshadowing sludge. There may be a few small gravel -like stones present. No pericholecystic fluid. Gallbladder is not hydropic. Mild wall thickening to 4 mm. CBD: 0.9 cm, mildly distended. Pancreas: Normal size and echogenicity. Pancreatic duct is minimally prominent. Right kidney: 12.9 cm in length. Normal size and echogenicity. No hydronephrosis or mass. Aorta and IVC: Unremarkable abdominal aorta and IVC. No ascites. US/US gall bladder [id number] IMPRESSION: 1. Small amount of sludge in the gallbladder with gallbladder wall thickening. The gallbladder was hydropic on the CT from 06/19/2022 obtained at 12:20 AM. Th e gallbladder no longer appears dilated by ultrasound. 2. Mild common bile duct dilatation to 9 mm. Consider MRCP evaluation. 3. Hepatic steatosis and mild hepatomegaly.
[2022-06-19] MEDS: ipratropium-albuterol 3 mL Neb INHALATION ×3 (08:55→20:25)
[2022-06-19] MEDS: nicotine 14 mg Patch 1 PATCH TRANSDERMA (09:36)
--- NOTE | 2022-06-19 10:00 | PC.NURSE ---
929 went to Patients room to administer meds, patient not in room and not in bathroom, charge nurse notified unit searched and patient not on unit. Other staff stated they saw her walking downstairs with a brunette haired lady. 939 patient returned to unit and stated she had gone out to smoke. patient educated that she cannot leave the unit and smoking is not allowed on hospial grounds. Dr Cesar notified. Patient not responsive to education and stated she would do what she wanted and her daughter was a nurse and could take her anywhere she wanted to go.
--- NOTE | 2022-06-19 10:57 | PC.CHAP ---
Pastoral Care Encounter/Spiritual Assessment Type of Contact [] Declined endband cutter hand visit [] Patient/Family/Request visit [] Outpatient visit [] Follow-up visit [] Physician referral [] Code/Alert [x] Routine visit [] Staff referral [] Actively dying [] Patient sleeping [] Family support [] [] Out of room [] Palliative care [] [x] Receiving care in room [] Pre-surgical visit [] Trauma [] Long length of stay [] ICU visit [] Other: Relational/Emotional Strength [] Patient feels connected with others/family/visitors/staff [] Distress [] Loneliness/isolation [] Abandonment Spirituality of Patient [] Person of Laly [] Attends Hindu of their Laly [] Believes in Prayer [] Reads Bible or Anabaptist materials [] There are Spiritual issues to be addressed Vending Route Servicer Interventions [] Prayer [] Active listening [] Non-anxious presence [] Spiritual/emotional support [] Crisis/trauma care [] Spiritual counseling [] Bereavement support [] Provided bereavement packet [] Provided Bible/devotional materials [] Provided toy/stuffed animal, coloring book to patient or family member [] Provided Communion [] Anointing/[place] [] Salvation [] Completed spiritual assessment [] Other: Impact on Illness or Injury [] Angry [] Fearful [] Anxious [] Often cries [] Exhaustion [] Unable to work [] Unable to attend zoroastrianism [] Unable to walk/stand [] Unable to read [] Unable to drive [] Unable to eat/drink [] Unable to sleep [] Unable to be with family [] Patient intubated [] Other: Summary Time spent with patient
--- NOTE | 2022-06-19 12:42 | P.PN_ITS ---
Subjective Subjective: Patient was seen this morning, I had a detailed discussion about pancreatitis, discussed how we should keep her n.p.o., allow for bowel rest, avoid aggravating the pancreas, keep IV fluids, pain control discussed the possibility of gallstone pancreatitis ordered ultrasound, she voiced understanding all questions answered -Later in the morning patient was taken off the floor with her daughter, she was told by nursing staff that she potentially went and smoked, -I discussed again with patient early in the morning that she must comply with our instruction in the hospital she cannot leave the floors, she cannot smoke -I discussed continuing medical interventions, IV fluids pain control and mon itoring her clinically monitor her blood work -She and her daughter voiced understanding, all question answered, agreed to proceed Vitals/I&O/Wt Last Vital Signs Temp 98.0 F 06/19/22 08:00 Pulse 89 06/19/22 08:59 Resp 16 06/19/22 08:57 BP 131/74 06/19/22 08:00 Pulse Ox 99 06/19/22 08:57 O2 Del Method 06/19/22 08:57 06/18/22 06/19/22 06/19/22 22:59 06:59 14:59 Intake Total 1999 Balance 1999 Weight last 48 hrs Weight 109.497 kg Physical Exam Const: COMMON NORMALS: no acute distress and patient oriented x3 Resp: COMMON NORMALS: normal respiratory effort, No retractions, No use of accessory muscles and clear to auscultation bilaterally AUSCULTATION: clear to auscultation bilaterally Cardio: COMMON NORMALS: regular rate, regular rhythm, S1 normal heart sound present and S2 normal heart sound present RATE: regular rate RHYTHM: regular rhythm HEART SOUNDS: S1 normal heart sound present and S2 normal heart sound present GI: OTHER: Abdomen soft, distended, decreased bowel sounds, no guarding, no rigidity, does have epigastric pain on palpation Extremity: COMMON NORMALS: no pedal edema Neuro: COMMON NORMALS: patient oriented x3 Psych: COMMON NORMALS: mental status grossly normal Data 06/18/22 22:51 06/18/22 22:51 A&P Assessment and plan (1) Pancreatitis: As seen on CT abdomen pelvis. Lipase around 3900 Concern for dilated common bile duct. MRCP done to rule out evidence of biliary obstruction. Ct abdomen 1. ? Common bile duct is somewhat dilated to 12 mm with intrahepatic biliary dilation, negative for obstructing lesion seen, MRCP could further evaluate this. 2. ? Transverse and left colon wall thickening may be due to nondistention, a colitis is also a consideration depending on the clinical scenario. 3. ? Right kidney cysts, negative for follow-up advised. 4. ? Diverticulosis without diverticulitis. 5. ? Small umbilical hernia containing omentum without bowel. 6. ? Emphysematous changes. 7. ? Bibasilar atelectasis versus infiltrate. 8. ? Gallbladder is distended, ultrasound could further evaluate this. 9.? Fusiform infrarenal abdominal aortic aneurysm measuring up to 2.6 cm rupture MRCP Liver: No mass. Gallbladder and bile ducts: Gallbladder is mildly distended. No definite wall thickening or pericholecystic fluid. No intraluminal signal voids. Common bile duct is mildly dilated with distal tapering. No intraluminal signal void identified. Pancreas: Unremarkable. No ductal dilation. Spleen: Unremarkable. No splenomegaly. Adrenal glands: Unremarkable. No mass. Kidneys and ureters: Unremarkable. No solid mass. No hydronephrosis. Stomach and bowel: Visualized stomach and intestines are unremarkable. Intraperitoneal space: No free fluid. Vasculature: No abdominal aortic aneurysm. Bones/joints: Unremarkable.? Soft tissues: Unremarkable. MR/MR MRCP [id number] IMPRESSION: No convincing MRCP evidence of biliary obstruction. 1.? Small amount of sludge in the gallbladder with gallbladder wall thickening. The gallbladder was hydropic on the CT from 06/19/2022 obtained at 12:20 AM. The gallbladder no longer appears dilated by ultrasound. 2.? Mild common bile duct dilatation to 9 mm. Consider MRCP evaluation. 3.? Hepatic steatosis and mild hepatomegaly. Most likely in setting of recent passed gallstone Patient is also a smoker. Monitor lipase, monitor electrolytes, Conservative treatment. NPO. IV hydration with D5 NS at 75 cc/h. Pain management with Dilaudid 0.4 every 4 hourly. Given aggressive tjga-exz-flncufq oral pain medication recently for now we will start on Protonix twice daily, Zofran as needed (2) Smoker unmotivated to quit: Offered nicotine patch. (3) Encounter for long-term use of opiate analgesic: Takes oxycodone 20 mg 4 times daily as needed as per pain management team. Pain medications been decreased as an outpatient. (4) Hypertension: Goal blood pressure less than 140/90 mmHg. Takes metoprolol succinate 50 mg daily at home. Switch to metoprolol IV every 6 hourly. To be held for heart rate of less than 100 bpm. Plan NPO. Protonix for PUD prophylaxis Lovenox for DVT prophylaxis Will repeat blood work to morning, keep n.p.o., discussed with general surgery, they will see, repeat blood work, Attestations Medical Necessity Statement*: patient requires hospitaization for pancreatitis, Coding Level of Care Code 43564 Moderate MDM includes number and complexity of problems actively addressed during encounter, amount and/or complexity of data reviewed/ordered and described risk of complication, morbidity or mortality of management as docu mented Diagnoses Pancreatitis K85.90 Smoker unmotivated to quit F17.200 Encounter for long-term use of opiate analgesic Z79.891 Hypertension I10
--- NOTE | 2022-06-19 13:05 | PM.CONSULT ---
Providers/Reason For Consult Consulting Physician/Specialty*: Hospitalist Reason for Consult*: Pancreatitis secondary to gallbladder disease Attending Physician: Shane Huber MD Primary Care Provider: Isabelle Moss History of Present Illness History of Present Illness Elizabeth Watson is a 67 year old female who presents with sudden onset of midepigastric to right upper quadrant pain. It was associate with nausea and vomiting. Patient has a history of fibromyalgia and hypertension. The patient is never had pain like this before. The patient reportedly had an inflamed pancreas 15 to 20 years ago. The exact etiology of this is unclear. The patient did not have any specific therapy for this. The patient stated that she has never had gallstone pancreatitis before. She is never had gallstones before that she knows of. The patient has no fatty food intolerance. The patient's had normal stools. She denies any history of jaundice. The patient does not take any drugs. The patient does not drink on a daily basis. Review of Systems General: Reports: 10 or more systems reviewed and unremarkable except in HPI and below Medications/Allergies Home Medications Medication Instructions Recorded Confirmed Last Taken Type naproxen sodium 220 mg tablet 440 mg PO BID PRN Pain 05/08/19 06/19/22 Unknown History (Aleve) simethicone 125 mg capsule (Gas 125 mg PO QID PRN bloating 05/08/19 06/19/22 Unknown History Relief (simethicone)) esomeprazole magnesium 20 mg 20 mg PO DAILY 08/28/20 06/19/22 Unknown History capsule,delayed release acetaminophen 500 mg tablet 1,000 mg PO Q6H PRN Pain 06/19/22 06/19/22 Unknown History ibuprofen 200 mg tablet 400 mg PO Q6H PRN Pain 06/19/22 06/19/22 Unknown History metoprolol succinate 50 mg 50 mg PO DAILY 06/19/22 06/19/22 Unknown History tablet,extended release 24 hr multivitamin 1 tab PO DAILY PRN unknown 06/19/22 06/19/22 Unknown History oxycodone 10 mg tablet 10 mg PO Q6H PRN Pain 06/19/22 06/19/22 Unknown History oxycodone myristate 13.5 mg 13.5 mg PO DAILY 06/19/22 06/19/22 Unknown History capsule sprinkle extend release 12hr(DON'T CRUSH) (Xtampza ER) tizanidine 4 mg tablet 4 mg PO BID PRN muscle spasticity 06/19/22 06/19/22 Unknown History vibegron 75 mg tablet (Gemtesa) 75 mg PO DAILY 06/19/22 06/19/22 Unknown History Allergies Allergy/AdvReac Type Severity Reaction Status Date / Time gabapentin Allergy ADR-Dizzine Verified 06/05/22 08:58 ss hydrocodone Allergy ADR-Nausea Verified 06/05/22 08:58 milnacipran [From Savella] Allergy does not Verified 06/05/22 08:58 remember pregabalin [From Lyrica] Allergy does not Verified 06/05/22 08:58 remember reaction Current Medications Generic Name Dose Route Start Last Admin Trade Name Freq PRN Reason Stop Dose Admin Albuterol/Ipratropium 3 ml 06/19/22 08:00 06/19/22 08:55 Ipratropium-Albuterol 3 Ml Neb INHALATION 3 ml Q6H.RESP JEWELL Administration Enoxaparin Sodium 40 mg 06/19/22 05:00 06/19/22 05:28 Enoxaparin 40 Mg/0.4 Ml Syringe SUBCUT 40 mg Q24H JEWELL Administration Hydromorphone HCl 0.4 mg 06/19/22 03:36 06/19/22 05:27 Hydromorphone 1 Mg/Ml Inj 1 Ml IVP 0.4 mg Q4H PRN Administration Pain scale 6-10 Dextrose/Sodium Chloride 1,000 mls @ 75 mls/hr 06/19/22 04:32 06/19/22 05:28 Dextrose 5%-Sod Chloride 0.9% IV 75 mls/hr .[id number] JEWELL Administration Metoprolol Tartrate 5 mg 06/19/22 03:45 06/19/22 09:37 Metoprolol Tartrate 1 Mg/1 Ml Sdv 5 Ml IVP 5 mg Q6H JWEELL Administration Nicotine 1 patch 06/19/22 09:00 06/19/22 09:36 Nicotine 14 Mg Patch TRANSDERMA 1 patch DAILY JEWELL Administration Pantoprazole Sodium 40 mg 06/19/22 07:00 06/19/22 06:42 Pantoprazole 40 Mg Sdv IVP 40 mg Q12H JEWELL Administration PFSH Acute PFSH: Medical History Back pain, lumbosacral Cervical radiculopathy Chronic lumbar radiculopathy Chronic migraine Encounter for long-term use of opiate analgesic Fibromyalgia Hypertension Neck pain Opioid contract exists Smoker unmotivated to quit Tobacco abuse Surgical History History of left oophorectomy History of lumpectomy S/P appendectomy S/P cervical spinal fusion S/P colonoscopy 04/21/19 - Diverticulosis. Repeat in 5 years. Family History Mother Cancer Father Lung disease Social History Smoking and tobacco status: current every day smoker cigarettes Packs smoked per day: 1 Alcohol intake: never Lives independently: Yes Vitals/I&O/Wt Last Vital Signs Temp 98.0 F 06/19/22 08:00 Pulse 89 06/19/22 08:59 Resp 16 06/19/22 08:57 BP 131/74 06/19/22 08:00 Pulse Ox 99 06/19/22 08:57 O2 Del Method 06/19/22 08:57 06/18/22 06/19/22 06/19/22 22:59 06:59 14:59 Intake Total 1999 Balance 1999 Weight last 48 hrs Weight 241 lb 6.4 oz Physical Exam Narrative: Generally: Somewhat obese HEENT is normocephalic atraumatic, pupils equal round reactive to light. Neck: Range of motion and nontender. The patient has no thyromegaly Lungs: Clear to auscultation and percussion Heart: Regular rate and rhythm without murmurs. There is no S3 or S4. There is no rubs clicks or JVD noted. Abdomen: Obese, patient is some midepigastric tenderness without rebound. There is no masses that I can appreciate. There are no hernias that I can appreciate. The patient has no hepatosplenomegaly Extremities: There is no obvious deformities or point tenderness suggestive of a fracture. The patient has no clubbing cyanosis or edema. The patient is awake, alert, oriented x3. The patient's [place] Coma Scale is 15. The patient sensations intact to light touch throughout Data 06/18/22 22:51 06/18/22 22:51 Attestation for Other Data: I personally reviewed and interpreted the following: (I reviewed all the patient's labs as well as the patient CT scan of the abdomen, I also reviewed the patient's ultrasound of the gallbladder and the patient's MRCP) A&P Assessment and plan (1) Pancreatitis: This patient most likely has gallstone pancreatitis. The patient is most likely passed what ever stone was in place. Would repeat the patient's total bilirubin. The patient's total bilirubin is normal and the patient's liver functions are coming down, the patient probably needs to have her gallbladder removed. We will continue to follow this patient with you. Coding Level of Care Code 78564 Diagnoses Pancreatitis K85.90
[2022-06-19 14:21] LABS: Alanine Aminotransferase 74 U/L (0-33); Albumin Level 3.1 g/dL (3.5-5.2); Alkaline Phosphatase 127 U/L (35-105); Aspartate Amino Transferase 112 U/L (0-32); Globulin 3.3 g/dL (1.3-4.6); Magnesium 1.5 mg/dL (1.7-2.3); Phosphorus 1.7 mg/dL (2.5-4.5); Total Bilirubin 3.1 mg/dL (0.15-1.2); Total Protein 6.4 g/dL (6.6-8.7)
[2022-06-19 14:22] LABS: C Reactive Protein 85.2 mg/L (0.0-4.9); Gamma Glutamyl Transferase 190 U/L (5-36); Procalcitonin 19.53 ng/mL (0-0.5)
[2022-06-19 14:35] LABS: Lipase 1094 U/L (13-60)
[2022-06-19] MEDS: piperacillin-tazobactam 3.375 GM in sodium chloride 0.9% (plus) 50 ML IV (18:03)
[2022-06-20] VITALS (12 sets, daily range): BP systolic 144–167; BP diastolic 68–89; PULSE 73–94; RESP 16–18; TEMP 36.7–37.8; O2SAT 94–98; BMI 37.5
[2022-06-20] MEDS: piperacillin-tazobactam 3.375 GM in sodium chloride 0.9% (plus) 50 ML IV ×2 (00:56→10:03)
[2022-06-20] MEDS: enoxaparin 40 mg/0.4 mL Syringe SUBCUT (04:25)
[2022-06-20] MEDS: metoprolol tartrate 1 mg/1 mL SDV 5 mL 5 MG IVP ×3 (04:25→15:59)
[2022-06-20 05:02] LABS: Basophils % 0.1 %; Eosinophils # 0.2 10^3/uL (0.0-0.8); Eosinophils % 2.1 %; Hematocrit 35.2 % (37.0-47.0); Lymphocytes # 0.8 10^3/uL (0.8-4.8); Lymphocytes % 9.8 %; Mean Corpuscular HGB Conc 34.1 g/dL (30.0-36.0); Mean Corpuscular Hemoglobin 33.4 pg (28.0-34.0); Mean Corpuscular Volume 98.1 fl (81-99); Mean Platelet Volume 10.7 fL (7.4-10.4); Monocytes # 0.4 10^3/uL (0.2-0.9); Monocytes % 4.5 %; Neutrophils # 6.41 10^3/uL (1.8-7.7); Neutrophils % 83.1 %; Nucleated Red Blood Cells % 0 %; Platelet Count 124 10^3/cmm (130-400); Red Blood Count 3.59 10^6/uL (4.1-5.3); Red Cell Distribution Width 14.6 % (12.1-15.1); White Blood Count 7.7 10^3/uL (4.0-10.0)
[2022-06-20 05:20] LABS: Lactate (Lactic Acid level) 1.2 mmol/L (0.5-2.2)
[2022-06-20 05:23] LABS: Total Bilirubin 4.2 mg/dL (0.15-1.2)
[2022-06-20 05:30] LABS: Estmated Average Glucose 111; Hemoglobin A1C 5.5 % (4.0-6.0)
[2022-06-20 05:42] LABS: Alanine Aminotransferase 61 U/L (0-33); Alkaline Phosphatase 115 U/L (35-105); Anion Gap 12.7 (5-19); Aspartate Amino Transferase 70 U/L (0-32); Blood Urea Nitrogen 9 mg/dL (8-23); C Reactive Protein 150.1 mg/L (0.0-4.9); Calcium 8.5 mg/dL (8.5-10.5); Carbon Dioxide 22 mmol/L (22-29); Chloride 106 mmol/L (98-107); Cholesterol 105 mg/dL (0-200); Globulin 3.4 g/dL (1.3-4.6); Glomerular Filtration Rate 71.1 mL/min (90-130); Glucose 129 mg/dL (65-115); HDL Cholesterol 25 mg/dL (60-100); LDL Cholesterol Calculated 64 mg/dL (50-129); Magnesium 1.7 mg/dL (1.7-2.3); Osmolality Calculated 284 mOsm/kg (285-295); Phosphorus 1.7 mg/dL (2.5-4.5); Potassium 3.7 mmol/L (3.5-5.1); Sodium 137 mmol/L (136-145); Total Bilirubin 4.2 mg/dL (0.15-1.2); Total Protein 6.4 g/dL (6.6-8.7); Triglycerides 82 mg/dL (0-150); VLDL Cholestrol Calculation 16 mg/dL (0-30)
[2022-06-20] MEDS: HYDROmorphone 1 mg/mL INJ 1 mL 0.4 MG IVP (05:45)
[2022-06-20] MEDS: pantoprazole 40 mg SDV IVP (05:48)
[2022-06-20 05:50] LABS: Lipase 619 U/L (13-60)
[2022-06-20] MEDS: ipratropium-albuterol 3 mL Neb INHALATION ×2 (08:20→14:02)
[2022-06-20] MEDS: nicotine 14 mg Patch 1 PATCH TRANSDERMA (10:02)
[2022-06-20] MEDS: oxyCODONE 5 mg IR Tab/Cap 10 MG PO ×2 (10:02→16:00)
[2022-06-20] MEDS: tizanidine 4 mg Tablet PO (10:02)
--- NOTE | 2022-06-20 13:04 | PM.PN ---
Subjective Subjective: This patient looks like she was doing relatively well overnight. The patient's total bilirubin this morning is greater than 4. Because of this I think the patient requires an ERCP prior to cholecystectomy. Would recommend transferring this patient to someplace that has ERCP capabilities. Please reconsult for questions or concerns. Vitals/I&O/Wt Last Vital Signs Temp 99.5 F 06/20/22 12:00 Pulse 73 06/20/22 12:00 Resp 16 06/20/22 12:00 BP 144/72 06/20/22 12:00 Pulse Ox 96 06/20/22 12:00 O2 Del Method 06/20/22 09:47 06/19/22 06/20/22 06/20/22 22:59 06:59 14:59 Intake Total 1007.5 / 1007.5 50 / 1057.5 1000 / 1000 Balance 1007.5 / 1007.5 50 / 1057.5 1000 / 1000 Weight last 48 hrs Weight 232 lb 7 oz Weight 241 lb 6.4 oz Data 06/20/22 04:19 06/20/22 04:19 Micro: Microbiology 06/19/22 17:35 Blood Culture - Preliminary Blood SPECIMEN COLLECTED 06/19/22 17:40 Blood Culture - Preliminary Blood SPECIMEN COLLECTED Attestations Medical Necessity Statement*: Will need transfer for ERCP Coding Level of Care Code Acute Code for Chg Fwd
--- NOTE | 2022-06-20 13:53 | P.TS_ITS ---
Transfer Summary Providers Date of Admission: 06/19/22 03:21 Date of Discharge/Transfer: 06/20/22 Attending Provider at Admission: Romero Singh MD Attending Provider at Transfer: Shane Huber MD Primary Care Provider: Isabelle Moss Transfer Plans: Anticipated date of transfer: 06/20/22 . Diagnoses at Discharge Discharge Diagnosis (1) Pancreatitis: Status: Acute Reason for Visit Reason for Visit ABD PAIN Hospital Course Hospital Course Elizabeth Watson is a 67 year old female with past medical history of hypertension, chronic pain management for fibromyalgia who follows up with pain clinic presented to the ER because of epigastric abdominal pain radiating to flanks and back for more than 24 hours along with nausea and vomiting.? In the ER she was found to have acute pancreatitis.? Patient denies any alcohol abuse.? Does states she consumes beer occasionally.? Smokes 1 pack of cigarettes a day.? Denies any history of gallstones.? Denies any new herbal products but has been taking more [id number] pain medications including naproxen and ibuprofen for tooth ache. Patient was admitted to [facility] for -Concerns for pancreatitis, gallstone pancreatitis with lipase of 3900, bili 1.2, AST 125, ALT 74, alk phos of 160, CRP 85, Pro-Omid 19. CT scan showed concern for CBD dilatation, MRCP did not show any evidence of biliary duct dilatation or obstruction, gallbladder did show wall thickening, but CBD dilata tion was 9 mm. Thus, the thought was patient had gallstone pancreatitis with passing of the gallstone, she was managed conservatively with IV fluids, pain control, nausea management, antibiotics, consultation with general surgery. Generally patient improved, however early in the morning of 06/20/2022 she developed a fever, in the morning she had some episodes of confusion, continued to complain of abdominal pain, drowsiness, and her bili went up to 4.2 with a direct bili of 3.8. GGT was 190, AST improved to 70 ALT improved to 61, alk phos 115 CRP 150, Pro-Omid 15. After discussion with general surgery, the concern was for acute ascending cholangitis with concerns for biliary duct obstruction given her fever, her episodes of increased confusion, and elevated bili. I had a detailed discussion with patient and her daughter, the afternoon of 06/20/2022 she was alert orientedx3, she was following commands family at bedside, discussed my concerns for acute ascending cholangitis. The only definitive way to know is to perform a ERCP procedure which we do not do at [facility]. She would have to be transferred to a center which could perform this. I am concerned that given her sudden elevated bilirubin, that she might be developing acute ascending cholangitis, or there might be another stone blocking the biliary tract, and I am worried about the morbidity and mortality associated with biliary duct obstruction, and her developing acute ascending cholangitis which is associate with significant morbidity and mortality and sepsis. Discussed risks and benefits of transfer, patient and family voiced understanding, all questions answered, agreed to proceed with transfer. Patient was excepted at [facility], accepted by GI physician, accepted by hospitalist. Physical Exam Narrative: Jaundice appearing Const: COMMON NORMALS: no acute distress and patient oriented x3 Resp: COMMON NORMALS: normal respiratory effort, No retractions, No use of accessory muscles and clear to auscultation bilaterally AUSCULTATION: clear to auscultation bilaterally Cardio: COMMON NORMALS: regular rate, regular rhythm, S1 normal heart sound present and S2 normal heart sound present RATE: regular rate RHYTHM: regular rhythm HEART SOUNDS: S1 normal heart sound present and S2 normal heart sound present GI: COMMON NORMALS: Normal to inspection, nondistended, normoactive bowel sounds present and No hepatosplenomegaly present PALPATION: Yes No hepatosplenomegaly present Extremity: COMMON NORMALS: no clubbing, cyanosis or edema and no pedal edema Neuro: COMMON NORMALS: patient oriented x3 Psych: COMMON NORMALS: mental status grossly normal TS Data Studies Completed and Pending Pending at discharge Category Date Time Status Bilirubin, Total & Direct AM LABS Lab 06/21/22 04:00 Ordered Bilirubin, Total & Direct AM LABS Lab 06/22/22 04:00 Ordered Blood Culture Stat Lab 06/19/22 17:35 Results C Reactive Protein AM LABS Lab 06/21/22 04:00 Ordered C Reactive Protein AM LABS Lab 06/22/22 04:00 Ordered Lactate (Lactic Acid level) AM LABS Lab 06/21/22 04:00 Ordered Lactate (Lactic Acid level) AM LABS Lab 06/22/22 04:00 Ordered Lipase AM LABS Lab 06/21/22 04:00 Ordered Lipase AM LABS Lab 06/22/22 04:00 Ordered Phosphorus AM LABS Lab 06/21/22 04:00 Ordered Phosphorus AM LABS Lab 06/22/22 04:00 Ordered Procalcitonin AM LABS Lab 06/21/22 04:00 Ordered Procalcitonin AM LABS Lab 06/22/22 04:00 Ordered Labs from last 24 hours 06/20/22 06/20/22 06/20/22 04:19 04:19 04:19 WBC RBC Hgb Hct MCV MCH MCHC RDW Plt Count MPV Neut % (Auto) Lymph % (Auto) [place] % (Auto) Eos % (Auto) Baso % (Auto) Neut # (Auto) Lymph # (Auto) [place] # (Auto) Eos # (Auto) Baso # (Auto) Nucleated RBC % (auto) Nucleated RBCs # Sodium Potassium Chloride Carbon Dioxide Anion Gap BUN Creatinine GFR Calculation Glucose Estimat Average Glucose 111 Hemoglobin A1c 5.5 Calculated Osmolality Lactate 1.2 Calcium Phosphorus Magnesium Total Bilirubin 4.2 H Direct Bilirubin 3.80 H Indirect Bilirubin 0.40 GGT AST ALT Alkaline Phosphatase C-Reactive Protein Total Protein Albumin Globulin Triglycerides Cholesterol LDL Cholesterol, Calc Total VLDL Cholesterol HDL Cholesterol Cholesterol/HDL Ratio Lipase Procalcitonin 06/20/22 06/20/22 06/19/22 04:19 04:19 13:25 WBC 7.7 RBC 3.59 L Hgb 12.0 Hct 35.2 L MCV 98.1 MCH 33.4 MCHC 34.1 RDW 14.6 Plt Count 124 L MPV 10.7 H Neut % (Auto) 83.1 Lymph % (Auto) 9.8 [place] % (Auto) 4.5 Eos % (Auto) 2.1 Baso % (Auto) 0.1 Neut # (Auto) 6.41 Lymph # (Auto) 0.8 [place] # (Auto) 0.4 Eos # (Auto) 0.2 Baso # (Auto) 0.0 Nucleated RBC % (auto) 0 Nucleated RBCs # 0.0 Sodium 137 Potassium 3.7 Chloride 106 Carbon Dioxide 22 Anion Gap 12.7 BUN 9 Creatinine 0.8 GFR Calculation 71.1 L Glucose 129 H Estimat Average Glucose Hemoglobin A1c Calculated Osmolality 284 L Lactate Calcium 8.5 Phosphorus 1.7 L 1.7 L Magnesium 1.7 1.5 L Total Bilirubin 4.2 H 3.1 H Direct Bilirubin 2.60 H Indirect Bilirubin GGT AST 70 H 112 H ALT 61 H 74 H Alkaline Phosphatase 115 H 127 H C-Reactive Protein 150.1 H Total Protein 6.4 L 6.4 L Albumin 3.0 L 3.1 L Globulin 3.4 3.3 Triglycerides 82 Cholesterol 105 LDL Cholesterol, Calc 64 Total VLDL Cholesterol 16 HDL Cholesterol 25 L Cholesterol/HDL Ratio 4.20 Lipase 619 H Procalcitonin 15.00 H 06/19/22 13:25 WBC RBC Hgb Hct MCV MCH MCHC RDW Plt Count MPV Neut % (Auto) Lymph % (Auto) [place] % (Auto) Eos % (Auto) Baso % (Auto) Neut # (Auto) Lymph # (Auto) [place] # (Auto) Eos # (Auto) Baso # (Auto) Nucleated RBC % (auto) Nucleated RBCs # Sodium Potassium Chloride Carbon Dioxide Anion Gap BUN Creatinine GFR Calculation Glucose Estimat Average Glucose Hemoglobin A1c Calculated Osmolality Lactate Calcium Phosphorus Magnesium Total Bilirubin Direct Bilirubin Indirect Bilirubin GGT 190 H AST ALT Alkaline Phosphatase C-Reactive Protein 85.2 H Total Protein Albumin Globulin Triglycerides Cholesterol LDL Cholesterol, Calc Total VLDL Cholesterol HDL Cholesterol Cholesterol/HDL Ratio Lipase 1094 H Procalcitonin 19.53 H Completed Studies During Hospitalization Category Date Time Status CT abdomen pelvis w con* [id number] Stat Cat Scan 06/18/22 23:09 Completed MR MRCP [id number] Stat MRI 06/19/22 00:47 Completed US gall bladder [id number] Routine Ultrasound 06/19/22 07:16 Completed Laboratory Last Values WBC 7.7 10^3/uL (4.0-10.0) 06/20/22 04:19 RBC 3.59 10^6/uL (4.1-5.3) L 06/20/22 04:19 Hgb 12.0 g/dL (11.5-15.3) 06/20/22 04:19 Hct 35.2 % (37.0-47.0) L 06/20/22 04:19 MCV 98.1 fl (81-99) 06/20/22 04:19 MCH 33.4 pg (28.0-34.0) 06/20/22 04:19 MCHC 34.1 g/dL (30.0-36.0) 06/20/22 04:19 RDW 14.6 % (12.1-15.1) 06/20/22 04:19 Plt Count 124 10^3/cmm (130-400) L 06/20/22 04:19 MPV 10.7 fL (7.4-10.4) H 06/20/22 04:19 Neut % (Auto) 83.1 % 06/20/22 04:19 Lymph % (Auto) 9.8 % 06/20/22 04:19 [place] % (Auto) 4.5 % 06/20/22 04:19 Eos % (Auto) 2.1 % 06/20/22 04:19 Baso % (Auto) 0.1 % 06/20/22 04:19 Neut # (Auto) 6.41 10^3/uL (1.8-7.7) 06/20/22 04:19 Lymph # (Auto) 0.8 10^3/uL (0.8-4.8) 06/20/22 04:19 [place] # (Auto) 0.4 10^3/uL (0.2-0.9) 06/20/22 04:19 Eos # (Auto) 0.2 10^3/uL (0.0-0.8) 06/20/22 04:19 Baso # (Auto) 0.0 10^3/uL (0.0-0.1) 06/20/22 04:19 Nucleated RBC % (auto) 0 % 06/20/22 04:19 Nucleated RBCs # 0.0 /100WBC 06/20/22 04:19 Sodium 137 mmol/L (136-145) 06/20/22 04:19 Potassium 3.7 mmol/L (3.5-5.1) 06/20/22 04:19 Chloride 106 mmol/L (98-107) 06/20/22 04:19 Carbon Dioxide 22 mmol/L (22-29) 06/20/22 04:19 Anion Gap 12.7 (5-19) 06/20/22 04:19 BUN 9 mg/dL (8-23) 06/20/22 04:19 Creatinine 0.8 mg/dL (0.5-0.9) 06/20/22 04:19 GFR Calculation 71.1 mL/min (90-130) L 06/20/22 04:19 Glucose 129 mg/dL (65-115) H 06/20/22 04:19 Estimat Average Glucose 111 06/20/22 04:19 Hemoglobin A1c 5.5 % (4.0-6.0) 06/20/22 04:19 Calculated Osmolality 284 mOsm/kg (285-295) L 06/20/22 04:19 Lactate 1.2 mmol/L (0.5-2.2) 06/20/22 04:19 Calcium 8.5 mg/dL (8.5-10.5) 06/20/22 04:19 Phosphorus 1.7 mg/dL (2.5-4.5) L 06/20/22 04:19 Magnesium 1.7 mg/dL (1.7-2.3) 06/20/22 04:19 Iron 90 ug/dL (37-145) 06/18/22 22:51 TIBC 324 mcg/dl 06/18/22 22:51 % Saturation 27.7 % (20-50) 06/18/22 22:51 Unsat Iron Binding 234 ug/dL (112-347) 06/18/22 22:51 Total Bilirubin 4.2 mg/dL (0.15-1.2) H 06/20/22 04:19 Total Bilirubin 4.2 mg/dL (0.15-1.2) H 06/20/22 04:19 Direct Bilirubin 3.80 mg/dL (0.00-0.30) H 06/20/22 04:19 Indirect Bilirubin 0.40 06/20/22 04:19 GGT 190 U/L (5-36) H 06/19/22 13:25 AST 70 U/L (0-32) H 06/20/22 04:19 ALT 61 U/L (0-33) H 06/20/22 04:19 Alkaline Phosphatase 115 U/L (35-105) H 06/20/22 04:19 C-Reactive Protein 150.1 mg/L (0.0-4.9) H 06/20/22 04:19 Total Protein 6.4 g/dL (6.6-8.7) L 06/20/22 04:19 Albumin 3.0 g/dL (3.5-5.2) L 06/20/22 04:19 Globulin 3.4 g/dL (1.3-4.6) 06/20/22 04:19 Triglycerides 82 mg/dL (0-150) 06/20/22 04:19 Cholesterol 105 mg/dL (0-200) 06/20/22 04:19 LDL Cholesterol, Calc 64 mg/dL (50-129) 06/20/22 04:19 Total VLDL Cholesterol 16 mg/dL (0-30) 06/20/22 04:19 HDL Cholesterol 25 mg/dL (60-100) L 06/20/22 04:19 Cholesterol/HDL Ratio 4.20 mg/dL (0.0-4.40) 06/20/22 04:19 Lipase 619 U/L (13-60) H 06/20/22 04:19 Vitamin B12 611 pg/mL (232-1245) 06/18/22 22:51 Folate 5.7 ng/mL (4.8-37.3) 06/18/22 22:51 Procalcitonin 15.00 ng/mL (0-0.5) H 06/20/22 04:19 TSH 2.16 uIU/mL (0.27-4.20) 06/18/22 22:51 Urine Color Yellow (Yellow) 06/19/22 01:03 Urine Appearance Clear (CLEAR) 06/19/22 01:03 Urine pH 5 (5-7) 06/19/22 01:03 Ur Specific [place] 1.010 (1.005-1.030) 06/19/22 01:03 Urine Protein Neg (Negative) 06/19/22 01:03 Urine Glucose (UA) Norm (Normal) 06/19/22 01:03 Urine Ketones Negative (Negative) 06/19/22 01:03 Urine Blood 2+ (Negative) H 06/19/22 01:03 Urine Nitrate Negative (Negative) 06/19/22 01:03 Urine Bilirubin Neg (Negative) 06/19/22 01:03 Urine Urobilinogen Norm mg/dL (Negative) 06/19/22 01:03 Ur Leukocyte Esterase Negative (Negative) 06/19/22 01:03 Urine RBC 0-4 /hpf (0-2) H 06/19/22 01:03 Urine WBC 0-4 /hpf (0-5) H 06/19/22 01:03 Ur Squamous Epith Cells 0-4 /hpf (0-5) H 06/19/22 01:03 Amorphous Sediment Not Reportable 06/19/22 01:03 Urine Bacteria Trace /hpf (NONE) 06/19/22 01:03 Radiology Impressions Abdomen/Pelvis CT 06/18/22 23:09 IMPRESSION: 1. Common bile duct is somewhat dilated to 12 mm with intrahepatic biliary dilation, negative for obstructing lesion seen, MRCP could further evaluate this. 2. Transverse and left colon wall thickening may be due to nondistention, a colitis is also a consideration depending on the clinical scenario. 3. Right kidney cysts, negative for follow-up advised. 4. Diverticulosis without diverticulitis. 5. Small umbilical hernia containing omentum without bowel. 6. Emphysematous changes. 7. Bibasilar atelectasis versus infiltrate. 8. Gallbladder is distended, ultrasound could further evaluate this. 9. Fusiform infrarenal abdominal aortic aneurysm measuring up to 2.6 cm without rupture. COMMENTS: Consistent with the [place] [employer]'s Incidental Findings Committee white paper (J Am Judi Radiol 2018): Any incidental renal lesion less than 1 cm or classified as too small to characterize, or any incidental cystic renal lesion characterized as simple-appearing, is likely benign. No follow-up imaging is recommended for these lesions per consensus recommendations based on imaging criteria. Cholangiopancreatography MRI 06/19/22 00:47 IMPRESSION: No convincing MRCP evidence of biliary obstruction. Gallbladder Ultrasound 06/19/22 07:16 IMPRESSION: 1. Small amount of sludge in the gallbladder with gallbladder wall thickening. The gallbladder was hydropic on the CT from 06/19/2022 obtained at 12:20 AM. The gallbladder no longer appears dilated by ultrasound. 2. Mild common bile duct dilatation to 9 mm. Consider MRCP evaluation. 3. Hepatic steatosis and mild hepatomegaly. Recent Clincial Data Last Vital Signs Temp 99.5 F 06/20/22 12:00 Pulse 73 06/20/22 12:00 Resp 16 06/20/22 12:00 BP 144/72 06/20/22 12:00 Pulse Ox 96 06/20/22 12:00 O2 Del Method 06/20/22 09:47 Vital Signs Temp Pulse Resp BP Pulse Ox O2 Del Method 06/20/22 12:00 99.5 F 73 16 144/72 96 06/20/22 10:02 18 06/20/22 09:47 98.2 F 89 16 167/68 96 Room Air 06/20/22 08:26 84 06/20/22 08:20 82 17 96 Room Air 06/20/22 05:45 18 06/20/22 04:00 98.1 F 86 17 158/69 94 Room Air Intake & Output/Weight 06/18/22 06/19/22 06/20/22 06/21/22 06:59 06:59 06:59 06:59 Intake Total 1999 1057.5 / 1057.5 1240 / 1240 Balance 1999 1057.5 / 1057.5 1240 / 1240 Weight 109.497 kg 105.432 kg Vitals Last Vital Signs Temp 99.5 F 06/20/22 12:00 Pulse 73 06/20/22 12:00 Resp 16 06/20/22 12:00 BP 144/72 06/20/22 12:00 Pulse Ox 96 06/20/22 12:00 O2 Del Method 06/20/22 09:47 TS Medications Medications Albuterol/Ipratropium (Ipratropium-Albuterol 3 Ml Neb) 3 ml INHALATION Q6H.RESP JEWELL Last Admin: 06/20/22 08:20 Dose: 3 ml Enoxaparin Sodium (Enoxaparin 40 Mg/0.4 Ml Syringe) 40 mg SUBCUT Q24H JEWELL Last Admin: 06/20/22 04:25 Dose: 40 mg Hydromorphone HCl (Hydromorphone 1 Mg/Ml Inj 1 Ml) 0.4 mg IVP Q8H PRN PRN Reason: BREAKTHROUGH PAIN Dextrose/Sodium Chloride (Dextrose 5%-Sod Chloride 0.9%) 1,000 mls @ 75 mls/hr IV .[id number] [facility] Last Infusion: 06/20/22 07:46 Dose: Infused Piperacillin Sod/Tazobactam (Sod 3.375 gm/ Sodium Chloride) 50 mls @ 12.5 mls/hr IV Q8H [facility]; Protocol Last Admin: 06/20/22 10:03 Dose: 12.5 mls/hr Metoprolol Tartrate (Metoprolol Tartrate 1 Mg/1 Ml Sdv 5 Ml) 5 mg IVP Q6H [facility] Last Admin: 06/20/22 10:04 Dose: 5 mg Naloxone HCl (Naloxone 0.4 Mg/Ml Sdv) 0.1 mg IVP Q2M PRN PRN Reason: OPIATERV Nicotine (Nicotine 14 Mg Patch) 1 patch TRANSDERMA DAILY [facility] Last Admin: 06/20/22 10:02 Dose: 1 patch Ondansetron HCl (Ondansetron 2 Mg/Ml Sdv 2 Ml) 4 mg IVP Q6H PRN PRN Reason: vomiting, or N/V if npo Oxycodone HCl (Oxycodone 5 Mg Ir Tab/Cap) 10 mg PO Q6H PRN PRN Reason: PAIN Last Admin: 06/20/22 10:02 Dose: 10 mg Pantoprazole Sodium (Pantoprazole 40 Mg Sdv) 40 mg IVP Q12H [facility] Last Admin: 06/20/22 05:48 Dose: 40 mg Promethazine HCl (Promethazine 25 Mg/Ml Sdv 1 Ml) 12.5 mg IM Q6H PRN PRN Reason: NAUSEA Tizanidine HCl (Tizanidine 4 Mg Tablet) 4 mg PO BID PRN PRN Reason: muscle spasticity Last Admin: 06/20/22 10:02 Dose: 4 mg Discontinued Medications Hydromorphone HCl (Hydromorphone 1 Mg/Ml Inj 1 Ml) 1 mg IVP ONCE ONE Stop: 06/18/22 23:10 Last Admin: 06/18/22 23:28 Dose: 1 mg Hydromorphone HCl (Hydromorphone 1 Mg/Ml Inj 1 Ml) 1 mg IVP ONCE ONE Stop: 06/19/22 00:36 Last Admin: 06/19/22 00:39 Dose: 1 mg Hydromorphone HCl (Hydromorphone 1 Mg/Ml Inj 1 Ml) 0.4 mg IVP Q4H PRN PRN Reason: Pain scale 6-10 Last Admin: 06/20/22 05:45 Dose: 0.4 mg Sodium Chloride (Sodium Chloride 0.9%) 1,000 mls @ 999 mls/hr IV .Q1H1M ONE Stop: 06/19/22 00:09 Last Infusion: 06/19/22 04:08 Dose: Infused Sodium Chloride (Sodium Chloride 0.9%) 1,000 mls @ 999 mls/hr IV .Q1H1M ONE Stop: 06/19/22 01:36 Last Infusion: 06/19/22 04:08 Dose: Infused Iohexol (Iohexol 350 Mg/Ml 500 Ml Btl (Per Ml)) 0 ml IV ONCE ONE Stop: 06/19/22 00:21 Last Admin: 06/19/22 00:20 Dose: 100 ml Lorazepam (Lorazepam 2 Mg/Ml Inj 1 Ml) 0.5 mg IVP NOW ONE Stop: 06/19/22 01:21 Last Admin: 06/19/22 01:25 Dose: 0.5 mg Ondansetron HCl (Ondansetron 2 Mg/Ml Sdv 2 Ml) 4 mg IVP ONCE ONE Stop: 06/18/22 23:10 Last Admin: 06/18/22 23:18 Dose: 4 mg Ondansetron HCl (Ondansetron 2 Mg/Ml Sdv 2 Ml) 4 mg IVP Q8H PRN PRN Reason: vomiting, or N/V if npo Pantoprazole Sodium (Pantoprazole 40 Mg Sdv) 40 mg IVP Q24H [facility]WE[facility] Allergies gabapentin Allergy (Verified 06/05/22 08:58) ADR-Dizziness hydrocodone Allergy (Verified 06/05/22 08:58) ADR-Nausea milnacipran [From Savella] Allergy (Verified 06/05/22 08:58) does not remember pregabalin [From Lyrica] Allergy (Verified 06/05/22 08:58) does not remember reaction Home Medications naproxen sodium 220 mg tablet (Aleve) 440 mg PO BID PRN Pain 05/08/19 [History Confirmed 06/19/22] simethicone 125 mg capsule (Gas Relief (simethicone)) 125 mg PO QID PRN bloating 05/08/19 [History Confirmed 06/19/22] esomeprazole magnesium 20 mg capsule,delayed release 20 mg PO DAILY 08/28/20 [History Confirmed 06/19/22] acetaminophen 500 mg tablet 1,000 mg PO Q6H PRN Pain 06/19/22 [History Confirmed 06/19/22] ibuprofen 200 mg tablet 400 mg PO Q6H PRN Pain 06/19/22 [History Confirmed 06/19/22] metoprolol succinate 50 mg tablet,extended release 24 hr 50 mg PO DAILY 06/19/22 [History Confirmed 06/19/22] multivitamin 1 tab PO DAILY PRN unknown 06/19/22 [History Confirmed 06/19/22] oxycodone 10 mg tablet 10 mg PO Q6H PRN Pain 06/19/22 [History Confirmed 06/19/22] oxycodone myristate 13.5 mg capsule sprinkle extend release 12hr(DON'T CRUSH) (Xtampza ER) 13.5 mg PO DAILY 06/19/22 [History Confirmed 06/19/22] tizanidine 4 mg tablet 4 mg PO BID PRN muscle spasticity 06/19/22 [History Confirmed 06/19/22] vibegron 75 mg tablet (Gemtesa) 75 mg PO DAILY 06/19/22 [History Confirmed 06/19/22] Discharge Plan Discharge Patient Disposition: Home Condition: Stable Prescriptions: No Action naproxen sodium [Aleve] 220 mg tablet 440 mg PO BID PRN (Reason: Pain) simethicone [Gas Relief (simethicone)] 125 mg capsule 125 mg PO QID PRN (Reason: bloating) esomeprazole magnesium 20 mg capsule,delayed release(DR/EC) 20 mg PO DAILY multivitamin Tablet 1 tab PO DAILY PRN (Reason: unknown) metoprolol succinate 50 mg tablet extended release 24 hr 50 mg PO DAILY oxycodone 10 mg tablet 10 mg PO Q6H MDD 4 tabs PRN (Reason: Pain) Xtampza ER 13.5 mg cap,sprinkl,ER12hr(DONT CRUSH) 13.5 mg PO DAILY Gemtesa 75 mg tablet 75 mg PO DAILY Tylenol Ex Str Rapid Release 500 mg Tablet 1,000 mg PO Q6H PRN (Reason: Pain) ibuprofen 200 mg Tablet 400 mg PO Q6H PRN (Reason: Pain) tizanidine 4 mg tablet 4 mg PO BID PRN (Reason: muscle spasticity) Discharge Orders: Transfer Out of Facility (Order); Ordered 06/20/22 Ordered By: Shane Huber Referrals: Isabelle Moss, [employer] [Primary Care Provider] - Transfer Attestations Time Spent in Transfer Care: greater than 30 min Quality Metrics Clinical Quality Measures [ No reported AMI, CVA or VTE this stay] Coding Level of Care Code 45805 Total time (in minutes) for Discharge: 40 Diagnoses Pancreatitis K85.90
[2022-06-20] MEDS: ondansetron 2 mg/ML SDV 2 mL 4 MG IVP (15:59)
[2022-06-20] MEDS: dextrose 5%-sod chloride 0.9% 1,000 ML 75 ML IV (16:01)
--- NOTE | 2022-06-20 17:00 | PC.NURSE ---
1610 report called to Vandana at [facility], 1625 EMS here and patient transferred to [facility] for ERCP. Patients family notified
== END 2022-06-20 16:20 | disposition short-term general hospital (02) | DRG 439 ==
LOC: ER 06-19 03:30 → MEDSURG 06-19 04:04
PROVIDERS: Admitting Provider Student in an Organized Health Care Education/Training Program; Emergency Provider Emergency Medicine; PCP Nurse Practitioner Family; Visit Provider Family Medicine
DX: K85.10 Biliary acute pancreatitis without necrosis or infection (principal); K80.30 Calculus of bile duct with cholangitis, unspecified, without obstruction; I10 Essential (primary) hypertension; G89.29 Other chronic pain; M79.7 Fibromyalgia; F17.210 Nicotine dependence, cigarettes, uncomplicated; Z79.891 Long term (current) use of opiate analgesic; Z98.1 Arthrodesis status
CPT/HCPCS: 12345; 36415; 74177; 74181; 76705; 80053; 80061; 80076; 81001; 82247; 82248; 82607; 82746; 82977; 83036; 83540; 83550; 83605; 83690; 83735; 84100; 84145; 84443; 84478; 85025; 86140; 87040; 93005; 94640; 96372; 96374; 96375; 99254; 99285; C9113; J1170; J1650; J2060; J2405; J2543; J3490; J7030; J7042; Q9967

== ENCOUNTER 2022-06-29 17:38 | Outpatient (CLI) | payer MEDICARE, MEDICAID, SELFPAY ==
--- NOTE | 2022-06-29 19:09 | XRR_ITS ---
PROCEDURE INFORMATION: Exam: XR Chest Exam date and time: 06/29/2022 7:13 PM Age: 67 years old Clinical indication: Dyspnea and shortness of breath; Prior surgery; Surgery type: Gallbladder; Patient HX: Short of breath since surgery TECHNIQUE: Imaging protocol: Radiologic exam of the chest. Views: 2 views. COMPARISON: 1. CT lung screening [id number] 04/29/2022 12:50 PM 2. CR XR chest 2V* [id number] 11/27/2021 1:[address] lung screening [id number] 11/26/2020 9:18 AM FINDINGS: Lungs: No focal consolidation. There is artifactual vertical linear lucency projecting over lateral right hemithorax. The lucency is produced by a gas interface with the skin of the upper arm. Mild nonspecific lower lung predominant ground-glass and reticular opacity. Pleural spaces: There is no pleural effusion or pneumothorax. Heart/Mediastinum: Cardiomediastinal contours are unremarkable. Bones/joints: Bones are unremarkable. XR/XR chest 2V* [id number] IMPRESSION: Bilateral lower lung predominant reticular opacity corresponding to chronic interstitial lung disease visible on prior CTs 04/29/2022 and 11/26/2020. Findings are mildly progressive since chest radiograph of 11/27/2021. Superimposed infection or edema cannot be excluded.
== END 2022-06-29 17:39 | disposition home or self-care (01) ==
PROVIDERS: PCP Nurse Practitioner Family; Visit Provider Nurse Practitioner Family
DX: R06.00 Dyspnea, unspecified (principal)
CPT/HCPCS: 71046

== ENCOUNTER 2022-06-30 14:19 | Outpatient (CLI) | payer MEDICARE, MEDICAID, SELFPAY ==
--- NOTE | 2022-06-30 14:29 | CT_ITS ---
WS: [id number] CT CHEST ANGIOGRAPHY WITH REFORMATS HISTORY: ABNORMAL LABS, DYSPNEA, ELEVATED D-DIMER TECHNIQUE: Contiguous axial images are obtained through the chest during arterial injection of intrav enous contrast. Images are reconstructed to evaluate the pulmonary arteries. MIP imaging also reviewe d. All CT scans at [facility] use at least one of these dose optimization techniques: automat ed exposure control; mA and/or kV adjustment per patient size (includes targeted exams where dose is matched to clinical indication); or iterative reconstruction. CONTRAST: Omnipaque 350; 100 mL IV. DLP: 390.30 mGy.cm COMPARISON: 04/29/2022 Very good opacification of the pulmonary arteries. No filling defects or pulmonary embolism. Mild ath erosclerosis thoracic aorta. Mild LEFT heart enlargement. No RIGHT heart strain. No pericardial or pl eural effusions. Diffuse interstitial thickening throughout both lungs. Paraseptal emphysematous changes. Mild groundg lass attenuation. No pneumonia or mass. Mediastinal and hilar lymphadenopathy. The largest lymph node is RIGHT hilar measuring 2.0 x 1.5 cm. Small hiatal hernia. Hepatic steatosis. In the RIGHT upper quadrant within the region of the gallblad dasha fossa is a complex collection containing air. Patient is status post recent cholecystectomy. Ther e is also pneumobilia. Gallbladder fossa is incompletely visualized. There is also a partially visual ized common bile duct stent. CT/CT angio chest PE protcl [id number] IMPRESSION: 1. No pulmonary embolism. 2. Moderate atherosclerosis aorta. 3. Mild pulmonary venous congestion and a few areas of groundglass attenuation . Consider pneumonitis. 4. Complex collection in the gallbladder fossa. Patient has recently had her g allbladder removed. This complex collection may be Surgicel from the prior surg marni. I do not have access to the surgical procedure notes. This will be importa nt to obtain. Otherwise the possibility of an abscess developing at the gallbla dder fossa should be considered. Common bile duct stent is incompletely visuali zed. 5. Mediastinal and hilar adenopathy. The largest lymph node in the RIGHT hilum measures 2.0 x 1.5 cm. These may be reactive. Notified NATALIE Cui at 06/30/2022 3:31 PM.
[2022-06-30] MEDS: iohexol 350 mg/mL 500 mL Btl (per mL) IV (14:58)
== END 2022-06-30 14:20 | disposition home or self-care (01) ==
LOC: RAD 14:22
PROVIDERS: PCP Nurse Practitioner Family; Visit Provider Nurse Practitioner Family
DX: R06.00 Dyspnea, unspecified (principal); R79.89 Other specified abnormal findings of blood chemistry; I70.0 Atherosclerosis of aorta
CPT/HCPCS: 71275; Q9967

== ENCOUNTER 2022-07-02 15:12 | Outpatient (CLI) | payer MEDICARE, MEDICAID, SELFPAY ==
--- NOTE | 2022-07-02 | CT_ITS ---
WS: [id number] CT NECK TECHNIQUE: Contrast-enhanced CT of the neck with coronal and sagittal reformatted images. CLINICAL INFORMATION: NEOPLASM OF PHARYNX COMPARISON: None. DLP: 505.[address] scans at [facility] use at least one of these dose optimization techniques: automated e xposure control; mA and/or kV adjustment per patient size (includes targeted exams where dose is matc hed to clinical indication); or iterative reconstruction. FINDINGS: Mastoid air cells well aerated. Mild mucosal thickening with a small amount of fluid LEFT maxillary s inus consistent with sinusitis. Small retention cyst or polyp RIGHT maxillary sinus measuring 12 mm. Retention cyst or polyp RIGHT sphenoid sinus. Mild mucosal thickening in the ethmoid air cells Dental artifact degrades some images at the tongue base. Tonsillar calcifications. Low-attenuation re tention cyst or Tornwaldt cyst posterior nasopharynx measuring 8 mm. Recommend direct visualization. Normal parotid glands. Normal submandibular glands. Otherwise no evidence of supraglottic or glottic mass. Normal piriform sinuses. Normal vallecula and epiglottis. Normal subglottic airway. Normal glot tis. Normal thyroid gland. Calcified granulomas in the lung apices with fibrosis. Moderate LEFT and m ild RIGHT carotid bulb calcification. Moderate atheromatous disease aortic arch and great vessel orig ins Postoperative changes anterior cervical fusion C5-C7. No cervical lymphadenopathy. CT/CT neck w con* [id number] IMPRESSION: 1. Low-attenuation peripheral enhancing Tornwaldt cyst or retention cyst in th e posterior nasopharynx measuring 8 mm. Recommend direct visualization. 2. Otherwise no supraglottic or glottic mass. Tonsillar calcifications. 3. Normal salivary glands. 4. No cervical lymphadenopathy. 5. Moderate atheromatous disease.
[2022-07-02] MEDS: iohexol 350 mg/mL 500 mL Btl (per mL) IV (15:27)
== END 2022-07-02 15:13 | disposition home or self-care (01) ==
LOC: RAD 15:18
PROVIDERS: PCP Nurse Practitioner Family; Visit Provider Specialist
DX: D37.05 Neoplasm of uncertain behavior of pharynx (principal); I70.90 Unspecified atherosclerosis; J35.8 Other chronic diseases of tonsils and adenoids
CPT/HCPCS: 70491; Q9967

== ENCOUNTER 2022-08-12 13:24 | Outpatient (CLI) | payer MEDICARE, MEDICAID, SELFPAY ==
--- NOTE | 2022-08-12 13:31 | MM_ITS ---
WS: [id number] BILATERAL 3D TOMOSYNTHESIS DIGITAL SCREENING MAMMOGRAPHY WITH CAD CLINICAL INFORMATION: SCREEN HISTORY: Screening mammogram. No current complaints. COMPARISON: August 04, 2021 TECHNIQUE: Bilateral CC and MLO views. FINDINGS: Scattered fibroglandular densities bilaterally. Punctate and lucent centered calcifications. New ovoi d nodule upper outer RIGHT breast measuring 12 mm. This is new from August 04, 2021. Recommend further evaluation with RIGHT diagnostic mammography and u ltrasound. LEFT breast appears unchanged. MM/[place] [id number] IMPRESSION: BI-RADS: 0-Incomplete: Need additional imaging evaluation FOLLOW UP: Need Additional Imaging Recommend RIGHT breast diagnostic mammography with ultrasound.
== END 2022-08-12 13:25 | disposition home or self-care (01) ==
LOC: RAD 13:27
PROVIDERS: PCP Nurse Practitioner Family; Visit Provider Nurse Practitioner Family
DX: Z12.31 Encounter for screening mammogram for malignant neoplasm of breast (principal)
CPT/HCPCS: 77063; 77067

== ENCOUNTER 2022-08-24 13:15 | Outpatient (CLI) | payer MEDICARE, MEDICAID, SELFPAY ==
--- NOTE | 2022-08-24 13:55 | MM_ITS ---
WS: [id number] RIGHT 3D TOMOSYNTHESIS DIGITAL MAMMOGRAPHY WITH CAD CLINICAL INFORMATION: RT BR NODULE HISTORY: Additional views COMPARISON: August 12, 2022 TECHNIQUE: 3 views of the right breast were obtained. FINDINGS: Scattered fibroglandular densities of the right breast. Again seen is the 12 mm ovoid nodule upper ou ter RIGHT breast which persists on the spot compression views. Ultrasound RIGHT breast described belo w ULTRASOUND BREAST RIGHT TECHNIQUE: Ultrasound right breast focused area of concern. CLINICAL INFORMATION: RT BR NODULE FINDINGS: Ultrasound RIGHT breast 11:00 position 1 cm from the nipple. There is a well-circumscribed anechoic l esion in this area compatible with a simple cyst measuring 10.0 x 9.3 x 9.8 mm. This is benign. No ot her suspicious findings. Recommend return to annual screening mammography. MM/[place] [id number] IMPRESSION: BI-RADS: 2-Benign FOLLOW UP: 1 Year Follow-up Recommend return to annual screening mammography.
== END 2022-08-24 13:16 | disposition home or self-care (01) ==
PROVIDERS: PCP Nurse Practitioner Family; Visit Provider Nurse Practitioner Family
DX: R92.8 Other abnormal and inconclusive findings on diagnostic imaging of breast (principal); N60.01 Solitary cyst of right breast
CPT/HCPCS: 76642; 77061; G0279

== ENCOUNTER 2022-10-09 13:00 | Emergency (ER) | payer MEDICARE, MEDICAID, SELFPAY ==
[2022-10-09 13:05] VITALS: BP 149/75; PULSE 78; RESP 16; TEMP 36.7; O2SAT 98
--- NOTE | 2022-10-09 14:23 | ED_ITS ---
HPI - Dizziness General: Chief Complaint: Dizziness Stated Complaint: dizziness, blurred vision, nausea, headache Time Seen by Provider: 10/09/22 14:23 History of Present Illness: HPI Narrative: Ms. Watson is a 67-year-old lady with history of hypertension and back pain presenting to the emergency department for episodes of dizziness. She reports no prior history and has had 3 episodes starting on the . She describes driving when she had sudden onset of dizzy unwell feeling associated with mild headache. She notes blurred vision and nausea and vomiting. This resolved spontaneously. She subsequently had repeat episodes on the and then again today. She feels more brain fog today and generally unwell somewhat unsteady. Symptoms are worse with head movement however not reliable with regards to repeatability. Denies preceding viral syndrome. No other specific changes in health, exacerbating, or alleviating factors identified. Onset (ago): day(s) Timing: intermittent Severity: severe Description: room spinning and other History of similar symptoms: No Exacerbating factors: nothing Relieving factors: nothing Associated neuro symptoms: Reports other Review of Systems General: Reports: 10 or more systems reviewed and unremarkable except in HPI and below PFSH ED PFSH: Medical History Back pain, lumbosacral Cervical radiculopathy Chronic lumbar radiculopathy Chronic migraine Encounter for long-term use of opiate analgesic Fibromyalgia Hypertension Neck pain Opioid contract exists Smoker unmotivated to quit Tobacco abuse Surgical History History of left oophorectomy History of lumpectomy S/P appendectomy S/P cervical spinal fusion S/P colonoscopy 04/21/19 - Diverticulosis. Repeat in 5 years. Family History Mother Cancer Father Lung disease Social History Smoking and tobacco status: current every day smoker cigarettes Packs smoked per day: 1 Alcohol intake: never Substance/Drug Use: never Lives independently: Yes Physical Exam Const: COMMON NORMALS: patient oriented x3 and alert GENERAL APPEARANCE: cooperative and well developed HENMT: COMMON NORMALS: normocephalic and atraumatic HEAD & SCALP: normocephalic and atraumatic THROAT: posterior oropharynx normal Eye: COMMON NORMALS: conjunctivae normal CONJUNCTIVA: Yes conjunctivae normal SCLERA: sclerae normal Neck/C-Spine: COMMON NORMALS: supple GENERAL: Yes trachea midline Resp: COMMON NORMALS: clear to auscultation bilaterally EFFORT & INSPECTION: Yes able to speak in complete sentences AUSCULTATION: clear to auscultation bilaterally Cardio: COMMON NORMALS: regular rate and regular rhythm RATE: regular rate RHYTHM: regular rhythm GI: COMMON NORMALS: Soft to palpation PALPATION: Yes Soft to palpation and No Tenderness to palpation present (GI) Extremity: GENERAL: Yes normal exam except as noted and No edema Neuro: COMMON NORMALS: patient oriented x3, CN's II-XII intact bilaterally, moves all extremities, no focal motor deficits and no sensory deficits noted SENSORIUM/ORIENTATION: Yes alert and No Orientation impaired Psych: COMMON NORMALS: mental status grossly normal and Normal thought process present THOUGHT PROCESS: Normal thought process present Course Vital Signs: Vital signs: Vital Signs Temperature 98.1 F 10/09/22 13:05 Pulse Rate 100 10/09/22 15:05 Respiratory Rate 16 10/09/22 15:05 Blood Pressure 165/92 10/09/22 15:05 Pulse Oximetry 96 10/09/22 15:05 Oxygen Delivery Me thod Room Air 10/09/22 15:05 MDM - Dizziness Medical Decision Making 67-year-old lady presenting with episodes of dizziness and generalized unwell feeling. Exam as above. Not currently having symptoms and no focal neurologic deficits are appreciated. Patient is nontoxic. No meningismus EKG notable for sinus rhythm with normal axis and intervals, no STEMI. Labs with no significant hematologic or metabolic abnormality to explain symptom s. Mild transaminitis noted and improved from prior. No urinary symptoms. CTA of the head and neck revealed no hemorrhage, mass, large vessel stenosis or occlusion. Most likely etiology of symptoms is peripheral cause of vertigo. The results of ED evaluation were discussed with the patient including prescriptions and/or symptomatic cares (if applicable) including appropriate and responsible use, followup plan, and return precautions. The patient verbalized understanding and felt safe for discharge. Medical Records I reviewed the patient's medical records. Lab Data I reviewed the patient's lab results. 10/09/22 15:03 10/09/22 15:03 Radiology Impressions Head/Neck CTA 10/09/22 14:37 IMPRESSION: No large vessel stenosis or occlusion. IMPRESSION: Mild stenosis of the left carotid bulb and right internal carotid artery. No severe stenosis or occlusion. REFERENCES: NASCET CRITERIA. The degree of stenosis in the cervical segment of the internal carotid artery is based on NASCET criteria. Normal is no stenosis. Mild is less than 50% stenosis. Moderate is 50-69% stenosis. Severe is 70% to 99% stenosis. Total occlusion is no detectable patent lumen. Laboratory Results WBC 8.7 10^3/uL (4.0-10.0) 10/09/22 15:03 RBC 4.30 10^6/uL (4.1-5.3) 10/09/22 15:03 Hgb 13.4 g/dL (11.5-15.3) 10/09/22 15:03 Hct 41.5 % (37.0-47.0) 10/09/22 15:03 MCV 96.5 fl (81-99) 10/09/22 15:03 MCH 31.2 pg (28.0-34.0) 10/09/22 15:03 MCHC 32.3 g/dL (30.0-36.0) 10/09/22 15:03 RDW 15.4 % (12.1-15.1) H 10/09/22 15:03 Plt Count 187 10^3/cmm (130-400) 10/09/22 15:03 MPV 9.6 fL (7.4-10.4) 10/09/22 15:03 Neut % (Auto) 60.7 % 10/09/22 15:03 Lymph % (Auto) 27.8 % 10/09/22 15:03 Taney % (Auto) 5.2 % 10/09/22 15:03 Eos % (Auto) 5.7 % 10/09/22 15:03 Baso % (Auto) 0.5 % 10/09/22 15:03 Neut # (Auto) 5.29 10^3/uL (1.8-7.7) 10/09/22 15:03 Lymph # (Auto) 2.4 10^3/uL (0.8-4.8) 10/09/22 15:03 Taney # (Auto) 0.5 10^3/uL (0.2-0.9) 10/09/22 15:03 Eos # (Auto) 0.5 10^3/uL (0.0-0.8) 10/09/22 15:03 Baso # (Auto) 0.0 10^3/uL (0.0-0.1) 10/09/22 15:03 Nucleated RBC % (auto) 0 % 10/09/22 15:03 Nucleated RBCs # 0.0 /100WBC 10/09/22 15:03 Sodium 134 mmol/L (136-145) L 10/09/22 15:03 Potassium 4.3 mmol/L (3.5-5.1) 10/09/22 15:03 Chloride 99 mmol/L (98-107) 10/09/22 15:03 Carbon Dioxide 25 mmol/L (22-29) 10/09/22 15:03 Anion Gap 14.3 (5-19) 10/09/22 15:03 BUN 11 mg/dL (8-23) 10/09/22 15:03 Creatinine 0.6 mg/dL (0.5-0.9) 10/09/22 15:03 GFR Calculation 99.1 mL/min (90-130) 10/09/22 15:03 Glucose 124 mg/dL (65-115) H 10/09/22 15:03 Calculated Osmolality 279 mOsm/kg (285-295) L 10/09/22 15:03 Calcium 9.5 mg/dL (8.5-10.5) 10/09/22 15:03 Magnesium 1.9 mg/dL (1.7-2.3) 10/09/22 15:03 Total Bilirubin 0.2 mg/dL (0.15-1.2) 10/09/22 15:03 AST 44 U/L (0-32) H 10/09/22 15:03 ALT 50 U/L (0-33) H 10/09/22 15:03 Alkaline Phosphatase 151 U/L (35-105) H 10/09/22 15:03 Total Protein 8.1 g/dL (6.6-8.7) 10/09/22 15:03 Albumin 3.6 g/dL (3.5-5.2) 10/09/22 15:03 Globulin 4.5 g/dL (1.3-4.6) 10/09/22 15:03 TSH 1.65 uIU/mL (0.27-4.20) 10/09/22 15:03 Discharge Plan Discharge Patient Disposition: Home Clinical Impression: Dizziness, Mild atherosclerosis of both carotid arteries Condition: Stable Prescriptions: New meclizine 25 mg tablet 25 mg PO TID PRN (Reason: dizziness) Qty: 30 0RF No Action naproxen sodium [Aleve] 220 mg tablet 440 mg PO BID PRN (Reason: Pain) simethicone [Gas Relief (simethicone)] 125 mg capsule 125 mg PO QID PRN (Reason: bloating) esomeprazole magnesium 20 mg capsule,delayed release(DR/EC) 20 mg PO DAILY multivitamin Tablet 1 tab PO DAILY PRN (Reason: unknown) metoprolol succinate 50 mg tablet extended release 24 hr 50 mg PO DAILY oxycodone 10 mg tablet 10 mg PO Q6H MDD 4 tabs PRN (Reason: Pain) Gemtesa 75 mg tablet 75 mg PO DAILY acetaminophen [Tylenol Ex Str Rapid Release] 500 mg Tablet 1,000 mg PO Q6H PRN (Reason: Pain) ibuprofen 200 mg Tablet 400 mg PO Q6H PRN (Reason: Pain) tizanidine 4 mg tablet 4 mg PO BID PRN (Reason: muscle spasticity) ropinirole 0.5 mg tablet 0.5 mg PO QPM PRN (Reason: Restless Leg(S)) Discharge Orders: Discharge ED (Routine); Ordered 10/09/22 Ordered By: Morgan Oliver Referrals: Isabelle Moss, BLENDER [Primary Care Provider] - Discharge Diet: Usual diet Discharge Activity: Increase activity as tolerated Patient Instructions: Vertigo (ED), Dizziness (ED) Activity Restrictions/Additional Instructions: Thank you for visiting the emergency department. You were seen and evaluated for dizziness. The exact cause of your symptoms is unclear however is likely peripheral in nature and does not require hospitalization. Please follow-up with your primary care provider. Return to the emergency department for uncontrolled symptoms, any new neurologic symptoms, or anything else that you are concerned about and feel needs emergency department evaluation. Coding Level of Care Code ED Flat Folding Machine Operator for Nubia Olmstead
--- NOTE | 2022-10-09 14:37 | CTR_ITS ---
PROCEDURE INFORMATION: Exam: CTA Head With Contrast, Arteriography Exam date and time: 10/09/2022 3:45 PM Age: 67 years old Clinical indication: Dizziness and giddiness; Additional info: Dizziness, abnormal feeling TECHNIQUE: Imaging protocol: Computed tomographic angiography of the head with contrast. Exam focused on the arteries. 3D rendering (Not supervised by radiologist): MIP and/or 3D reconstructed images were created by the technologist. Radiation optimization: All CT scans at this facility use at least one of these dose optimization techniques: automated exposure control; mA and/or kV adjustment per patient size (includes targeted exams where dose is matched to clinical indication); or iterative reconstruction. Contrast material: OMNIPAQUE; Contrast volume: 100 ml; Contrast route: INTRAVENOUS (IV); REPORTING DATA: Count of CT and Cardiac NM exams in prior 12 months: This patient has received 4 known CTs and 0 known cardiac nuclear medicine studies in the 12 months prior to the current study. COMPARISON: CT neck w con* [id number] 07/02/2022 3:36 PM RADIATION DOSE METRICS: Total DLP (mGy-cm): 1039.69 FINDINGS: ANTERIOR CIRCULATION: Right internal carotid artery: Intracranial segment is patent with no significant stenosis. No aneurysm. Right middle cerebral artery: No occlusion or significant stenosis. No aneurysm. Right anterior cerebral artery: No occlusion or significant stenosis. No aneurysm. Left internal carotid artery: Intracranial segment is patent with no significant stenosis. No aneurysm. Left middle cerebral artery: No occlusion or significant stenosis. No aneurysm. Left anterior cerebral artery: No occlusion or significant stenosis. No aneurysm. POSTERIOR CIRCULATION: Right vertebral artery: No occlusion or significant stenosis. No aneurysm. Left vertebral artery: No occlusion or significant stenosis. No aneurysm. Basilar artery: No occlusion or significant stenosis. No aneurysm. Right posterior cerebral artery: No occlusion or significant stenosis. No aneurysm. Left posterior cerebral artery: No occlusion or significant stenosis. No aneurysm. Brain: No hemorrhage. No edema. Mild diffuse cerebral atrophy and sequela of chronic small vessel ischemic disease. No mass effect. Cerebral ventricles: No ventriculomegaly. Paranasal sinuses: Partially opacified ethmoid sinuses. Bones/joints: Unremarkable. No acute fracture. Soft tissues: Unremarkable. PROCEDURE INFORMATION: Exam: CTA Neck With Contrast Exam date and time: 10/09/2022 3:45 PM Age: 67 years old Clinical indication: Dizziness and giddiness; Additional info: Dizziness, abnormal feeling TECHNIQUE: Imaging protocol: Computed tomographic angiography of the neck with contrast. 3D rendering (Not supervised by radiologist): MIP and/or 3D reconstructed images were created by the technologist. Radiation optimization: All CT scans at this facility use at least one of these dose optimization techniques: automated exposure control; mA and/or kV adjustment per patient size (includes targeted exams where dose is matched to clinical indication); or iterative reconstruction. Contrast material: OMNIPAQUE; Contrast volume: 100 ml; Contrast route: INTRAVENOUS (IV); REPORTING DATA: Count of CT and Cardiac NM exams in prior 12 months: This patient has received 4 known CTs and 0 known cardiac nuclear medicine studies in the 12 months prior to the current study. COMPARISON: CT neck w con* [id number] 07/02/2022 3:36 PM RADIATION DOSE METRICS: Total DLP (mGy-cm): 1039.69 FINDINGS: Right common carotid artery: No stenosis. No dissection or occlusion. Right internal carotid artery: Mild stenosis of the origin of the internal carotid artery. No dissection or occlusion. Right external carotid artery: No occlusion or stenosis of the origin. Left common carotid artery: Mild stenosis of the carotid bulb. No dissection or occlusion. Left internal carotid artery: No stenosis of the extracranial segment. No dissection or occlusion. Left external carotid artery: No occlusion or stenosis of the origin. Right vertebral artery: No stenosis. No dissection or occlusion. Left vertebral artery: Hypoplastic left vertebral artery. No occlusion. Soft tissues: Normal. No significant soft tissue swelling. Bones/joints: No acute fracture. Intact ACDF hardware noted at the C5-C7 segment with intervertebral disc spacers. CT/CT angio headneck* [id number] IMPRESSION: No large vessel stenosis or occlusion. IMPRESSION: Mild stenosis of the left carotid bulb and right internal carotid artery. No severe stenosis or occlusion. REFERENCES: NASCET CRITERIA. The degree of stenosis in the cervical segment of the internal carotid artery is based on NASCET criteria. Normal is no stenosis. Mild is less than 50% stenosis. Moderate is 50-69% stenosis. Severe is 70% to 99% stenosis. Total occlusion is no detectable patent lumen.
--- NOTE | 2022-10-09 14:38 | ECG_ITS ---
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 Measurements Intervals [place] Rate: 73 P: 50 [place]: 138 QRS: 43 QRSD: 89 T: 51 QT: 377 QTc: 417 Interpretive Statements SINUS RHYTHM POSSIBLE RIGHT VENTRICULAR CONDUCTION DELAY [RSR (QR) IN V1/V2] Compared to ECG 06/18/2022 23:37:04 T-wave abnormality no longer present Electronically Signed On 10-10-2022 7:49:45 CDT by Kunal Deluna M.D. [id number] f
[2022-10-09 15:05] VITALS: BP 165/92; PULSE 100; RESP 16; O2SAT 96
[2022-10-09 15:18] LABS: Basophils % 0.5 %; Eosinophils # 0.5 10^3/uL (0.0-0.8); Eosinophils % 5.7 %; Hematocrit 41.5 % (37.0-47.0); Hemoglobin 13.4 g/dL (11.5-15.3); Lymphocytes # 2.4 10^3/uL (0.8-4.8); Lymphocytes % 27.8 %; Mean Corpuscular HGB Conc 32.3 g/dL (30.0-36.0); Mean Corpuscular Hemoglobin 31.2 pg (28.0-34.0); Mean Corpuscular Volume 96.5 fl (81-99); Mean Platelet Volume 9.6 fL (7.4-10.4); Monocytes # 0.5 10^3/uL (0.2-0.9); Monocytes % 5.2 %; Neutrophils # 5.29 10^3/uL (1.8-7.7); Neutrophils % 60.7 %; Nucleated Red Blood Cells % 0 %; Platelet Count 187 10^3/cmm (130-400); Red Cell Distribution Width 15.4 % (12.1-15.1); White Blood Count 8.7 10^3/uL (4.0-10.0)
[2022-10-09 15:41] LABS: Alanine Aminotransferase 50 U/L (0-33); Albumin Level 3.6 g/dL (3.5-5.2); Alkaline Phosphatase 151 U/L (35-105); Anion Gap 14.3 (5-19); Aspartate Amino Transferase 44 U/L (0-32); Blood Urea Nitrogen 11 mg/dL (8-23); Calcium 9.5 mg/dL (8.5-10.5); Carbon Dioxide 25 mmol/L (22-29); Chloride 99 mmol/L (98-107); Globulin 4.5 g/dL (1.3-4.6); Glomerular Filtration Rate 99.1 mL/min (90-130); Glucose 124 mg/dL (65-115); Magnesium 1.9 mg/dL (1.7-2.3); Osmolality Calculated 279 mOsm/kg (285-295); Potassium 4.3 mmol/L (3.5-5.1); Sodium 134 mmol/L (136-145); Thyroid Stimulating Hormone 1.65 uIU/mL (0.27-4.20); Total Bilirubin 0.2 mg/dL (0.15-1.2); Total Protein 8.1 g/dL (6.6-8.7)
[2022-10-09] MEDS: iohexol 350 mg/mL 500 mL Btl (per mL) IV (15:49)
== END 2022-10-09 16:56 | disposition home or self-care (01) ==
PROVIDERS: Emergency Provider Emergency Medicine; PCP Nurse Practitioner Family
DX: R42 Dizziness and giddiness (principal); I65.23 Occlusion and stenosis of bilateral carotid arteries; I10 Essential (primary) hypertension; F17.210 Nicotine dependence, cigarettes, uncomplicated; R74.01 Elevation of levels of liver transaminase levels
CPT/HCPCS: 70496; 70498; 80053; 83735; 84443; 85025; 93005; 99285; Q9967

== ENCOUNTER 2022-11-13 08:08 | Outpatient (CLI) | payer MEDICARE, MEDICAID, SELFPAY ==
--- NOTE | 2022-11-13 08:17 | FL_ITS ---
WS: [email or web address] Exam: FL barium swallow [id number] Date/Time of Exam: 11/13/2022 8:50 AM Reason For Exam: INTERMITTENT DYSPHAGIA Fluoroscopy time: 1min [id number] minutes # of spot films: Swallowing function at the level of the oropharynx was normal. The esophagus is smooth in contour. No sign of esophageal stricture or mass. The esophagus is not displaced. Normal esophageal motility. No hiatal hernia or gastroesophageal reflux observed during fluoroscopy. Incidentally noted are neurost imulator electrodes in the thoracic spinal canal. FL/FL barium swallow [id number] IMPRESSION: 1. Normal esophagram.
== END 2022-11-13 08:09 | disposition home or self-care (01) ==
PROVIDERS: PCP Nurse Practitioner Family; Visit Provider Nurse Practitioner Family
DX: R13.10 Dysphagia, unspecified (principal)
CPT/HCPCS: 74220

== ENCOUNTER 2022-11-20 07:46 | Outpatient (CLI) | payer MEDICARE, MEDICAID, SELFPAY ==
--- NOTE | 2022-11-20 07:56 | FL_ITS ---
WS: [id number] EXAMINATION: FL barium swallow modifd [id number] REASON FOR EXAM: Other dysphagia ORDER DATE: 11/20/2022 8:27 AM FLUOROSCOPY TIME: 2min 11.253786thg # OF SPOT FILMS: TECHNIQUE: The oral cavity and upper pharyngeal and laryngeal region were observed in the lateral pro jection with fluoroscopy during swallowing. Different consistencies of liquid and food were mixed with barium and administered by the speech path ologist during fluoroscopy. FINDINGS: The oral stage was unremarkable with satisfactory initiation of the swallowing reflex. Mov ement of contrast coated material through the pharynx into the upper esophagus was observed. There wa s a question of occasional penetration. Please refer to speech pathologist report for specific detail s regarding this and other findings. There was moderate delay in esophageal emptying with tertiary co ntraction waves of presbyesophagus. The barium tablet did lodge for short time at the esophagogastric junction. FL/FL barium swallow modifd [id number] IMPRESSION: PLEASE REFER TO THE SPEECH PATHOLOGIST REPORT FOR ADDITIONAL DETAILS REGARDING THIS MODIFIED BARIUM SWALLOW STUDY.
== END 2022-11-20 07:47 | disposition home or self-care (01) ==
PROVIDERS: PCP Nurse Practitioner Family; Visit Provider Nurse Practitioner Family
DX: R13.10 Dysphagia, unspecified (principal)
CPT/HCPCS: 74230; 92611

== ENCOUNTER → 2023-01-05 11:48 | Outpatient (BNVA) | payer MEDICARE, MEDICAID, SELFPAY | PROVIDERS: PCP Nurse Practitioner Family; Visit Provider Nurse Practitioner Family | DX: L08.9 Local infection of the skin and subcutaneous tissue, unspecified (principal); L57.8 Other skin changes due to chronic exposure to nonionizing radiation; D22.62 Melanocytic nevi of left upper limb, including shoulder | CPT/HCPCS: 56605; 99203 ==

== ENCOUNTER 2023-05-31 20:05 | Emergency (ER) | payer MEDICARE, MEDICAID, SELFPAY ==
[2023-05-31 20:08] VITALS: BP 205/133; PULSE 80; RESP 16; TEMP 37.1; O2SAT 98; BMI 32.5
--- NOTE | 2023-05-31 20:14 | ECG_ITS ---
[facility] Test Date: 2023-05-31 Pat Name: Elizabeth Watson Department: Room: Gender: Female Rn Clinical Research: : 1955 Requested By: Hussein Sandoval Order Number: [id number] Micha MD: Rodney Brito M.D. Measurements Intervals [place] Rate: 64 P: 42 [place]: 161 QRS: 19 QRSD: 86 T: 47 QT: 393 QTc: 405 Interpretive Statements SINUS RHYTHM POSSIBLE RIGHT VENTRICULAR CONDUCTION DELAY [RSR (QR) IN V1/V2] Compared to ECG 10/09/2022 13:13:45 No significant changes Electronically Signed On 06-02-2023 16:29:09 EQUIPMENT STERILIZER by Rodney Brito M.D. [id number] f
--- NOTE | 2023-05-31 20:29 | XRR_ITS ---
PROCEDURE INFORMATION: Exam: XR Chest Exam date and time: 05/31/2023 8:39 PM Age: 68 years old Clinical indication: Other: High BP; Additional info: Cp TECHNIQUE: Imaging protocol: Radiologic exam of the chest. Views: 1 view. COMPARISON: CT angio chest PE protcl [id number] 06/30/2022 2:49 PM FINDINGS: Tubes, catheters and devices: Spinal electrodes are in place. Lungs: Lungs are hyperinflated with fine reticular opacities throughout. No airspace disease. Pleural spaces: No pleural effusion. No pneumothorax. Heart/Mediastinum: Cardiac silhouette is normal in size for technique. Bones/joints: Cervical fusion hardware is partly visualized. XR/XR chest 1V portable [id number] IMPRESSION: Hyperinflated lungs. Subtle peripheral reticular opacities could reflect interstitial lung disease or mild edema.
[2023-05-31] MEDS: hyDRALAzine 20 mg/mL INJ 1 mL IVP (20:42)
[2023-05-31 20:43] LABS: Basophils % 0.5 %; Eosinophils # 0.3 10^3/uL (0.0-0.8); Hematocrit 43.1 % (36-47); Lymphocytes # 2.4 10^3/uL (0.8-4.8); Lymphocytes % 37.5 %; Mean Corpuscular HGB Conc 33.6 g/dL (30-55); Mean Corpuscular Hemoglobin 32.2 pg (27-33); Mean Corpuscular Volume 95.6 fl (85-98); Mean Platelet Volume 9.4 fL (7.4-10.4); Monocytes # 0.4 10^3/uL (0.2-0.9); Monocytes % 6.4 %; Neutrophils # 3.32 10^3/uL (1.8-7.7); Neutrophils % 51.4 %; Nucleated Red Blood Cells % 0 %; Platelet Count 168 10^3/cmm (157-399); Red Blood Count 4.51 10^6/uL (3.85-5.65); Red Cell Distribution Width 13.2 % (12.1-15.1); White Blood Count 6.45 10^3/uL (3.29-11.43)
[2023-05-31 21:04] LABS: Troponin(5th) Baseline 8 ng/L (0-10)
[2023-05-31 21:08] LABS: Alanine Aminotransferase 38 U/L (0-33); Albumin Level 3.8 g/dL (3.5-5.2); Alkaline Phosphatase 132 U/L (35-105); Anion Gap 16.3 (5-19); Aspartate Amino Transferase 36 U/L (0-32); Blood Urea Nitrogen 11 mg/dL (8-23); Calcium 9.6 mg/dL (8.5-10.5); Carbon Dioxide 24 mmol/L (22-29); Chloride 98 mmol/L (98-107); Globulin 4.2 g/dL (1.3-4.6); Glomerular Filtration Rate 70.9 mL/min (90-130); Glucose 101 mg/dL (65-115); Osmolality Calculated 278 mOsm/kg (285-295); Potassium 4.3 mmol/L (3.5-5.1); Sodium 134 mmol/L (136-145); Total Bilirubin 0.2 mg/dL (0.15-1.2)
--- NOTE | 2023-05-31 21:10 | ED_ITS ---
HPI - Recheck/Abnormal Lab/Rx 2 General: Chief Complaint: Recheck/Abnormal Lab/Rx Stated Complaint: high bp Time Seen by Provider: 05/31/23 20:24 Source: patient Mode of arrival: ambulatory Limitations: no limitations History of Present Illness: 68-year-old female states that she has a history of high blood pressure states that she is having some pain down her left arm she decided to check her blood pressure it was in the 200s. States her pain is improved she still hypertensive here she denies any headache denies any shortness of breath she denies any worsening improving factors. Review of Systems 2 Const: Denies: fever(s), chills, body aches or change in appetite ENMT: Denies: throat pain or dental pain Card: Reports: chest pain Resp: Denies: dyspnea GI: Denies: abdominal pain, nausea, vomiting or diarrhea Musc: Denies: neck pain or back pain Skin/Breast: Denies: rash Neuro: Denies: headache(s) PFSH ED 2 PFSH: Medical History Back pain, lumbosacral Cervical radiculopathy Chronic lumbar radiculopathy Chronic migraine Encounter for long-term use of opiate analgesic Fibromyalgia Hypertension Neck pain Opioid contract exists Smoker unmotivated to quit Tobacco abuse Surgical History History of lumpectomy History of left oophorectomy S/P colonoscopy 04/21/19 - Diverticulosis. Repeat in 5 years. S/P cervical spinal fusion S/P appendectomy Family History Mother Cancer Father Lung disease Social History Smoking and tobacco/nicotine status: current every day tobacco/nicotine user cigarettes Packs smoked per day: 1 Alcohol intake: never Substance/Drug Use: never Lives independently: Yes Physical Exam 2 Const: COMMON NORMALS: no acute distress, patient oriented x3 and healthy appearing HENMT: COMMON NORMALS: normocephalic and atraumatic HEAD & SCALP: n ormocephalic and atraumatic Neck/C-Spine: COMMON NORMALS: full ROM and supple Chest: COMMONS NORMALS: normal inspection of the chest Resp: COMMON NORMALS: normal respiratory effort Cardio: COMMON NORMALS: regular rate, regular rhythm and No murmurs present (Cardio) RATE: regular rate RHYTHM: regular rhythm Extremity: COMMON NORMALS: normal to inspection and full ROM Neuro: COMMON NORMALS: patient oriented x3, moves all extremities and no focal motor deficits Psych: COMMON NORMALS: mental status grossly normal, Normal thought process present and cooperative THOUGHT PROCESS: Normal thought process present Skin: COMMON NORMALS: no rashes or lesions noted and no wounds GENERAL SKIN EXAM: no rashes or lesions noted Course 2 Vital Signs: Vital signs: Vital Signs Temperature 98.7 F 05/31/23 20:08 Pulse Rate 74 05/31/23 22:54 Respiratory Rate 17 05/31/23 22:54 Blood Pressure 163/68 05/31/23 22:54 Pulse Oximetry 96 05/31/23 22:54 Oxygen Delivery Me thod Room Air 05/31/23 22:44 MDM - Recheck/Abnormal Lab/Rx Medical Decision Making Patient presents here with hypertension and also had some chest pain initial repeat troponin here is normal her blood pressure has improved here after meds I did recommend admission here due to her high blood pressure along with chest pain patient states she wants to go home we will adjust her meds she is to increase her metoprolol to 50 twice daily along with her lisinopril to 40 she is follow-up with PCP in 4 to 7 days return if worsening. She has no signs of stroke here. Medical Records I reviewed the patient's medical records. Lab Data I reviewed the patient's lab results. 05/31/23 20:36 05/31/23 20:36 Radiology Impressions Chest X-Ray 05/31/23 20:29 IMPRESSION: Hyperinflated lungs. Subtle peripheral reticular opacities could reflect interstitial lung disease or mild edema. Laboratory Results WBC 6.45 10^3/uL (3.29-11.43) 05/31/23 20:36 RBC 4.51 10^6/uL (3.85-5.65) 05/31/23 20:36 Hgb 14.50 g/dL (11.27-16.99) 05/31/23 20:36 Hct 43.1 % (36-47) 05/31/23 20:36 MCV 95.6 fl (85-98) 05/31/23 20:36 MCH 32.2 pg (27-33) 05/31/23 20:36 MCHC 33.6 g/dL (30-55) 05/31/23 20:36 RDW 13.2 % (12.1-15.1) 05/31/23 20:36 Plt Count 168 10^3/cmm (157-399) 05/31/23 20:36 MPV 9.4 fL (7.4-10.4) 05/31/23 20:36 Neut % (Auto) 51.4 % 05/31/23 20:36 Lymph % (Auto) 37.5 % 05/31/23 20:36 [place] % (Auto) 6.4 % 05/31/23 20:36 Eos % (Auto) 4.0 % 05/31/23 20:36 Baso % (Auto) 0.5 % 05/31/23 20:36 Neut # (Auto) 3.32 10^3/uL (1.8-7.7) 05/31/23 20:36 Lymph # (Auto) 2.4 10^3/uL (0.8-4.8) 05/31/23 20:36 [place] # (Auto) 0.4 10^3/uL (0.2-0.9) 05/31/23 20:36 Eos # (Auto) 0.3 10^3/uL (0.0-0.8) 05/31/23 20:36 Baso # (Auto) 0.0 10^3/uL (0.0-0.1) 05/31/23 20:36 Nucleated RBC % (auto) 0 % 05/31/23 20:36 Nucleated RBCs # 0.0 /100WBC 05/31/23 20:36 Sodium 134 mmol/L (136-145) L 05/31/23 20:36 Potassium 4.3 mmol/L (3.5-5.1) 05/31/23 20:36 Chloride 98 mmol/L (98-107) 05/31/23 20:36 Carbon Dioxide 24 mmol/L (22-29) 05/31/23 20:36 Anion Gap 16.3 (5-19) 05/31/23 20:36 BUN 11 mg/dL (8-23) 05/31/23 20:36 Creatinine 0.8 mg/dL (0.5-0.9) 05/31/23 20:36 GFR Calculation 70.9 mL/min (90-130) L 05/31/23 20:36 Glucose 101 mg/dL (65-115) 05/31/23 20:36 Calculated Osmolality 278 mOsm/kg (285-295) L 05/31/23 20:36 Calcium 9.6 mg/dL (8.5-10.5) 05/31/23 20:36 Total Bilirubin 0.2 mg/dL (0.15-1.2) 05/31/23 20:36 AST 36 U/L (0-32) H 05/31/23 20:36 ALT 38 U/L (0-33) H 05/31/23 20:36 Alkaline Phosphatase 132 U/L (35-105) H 05/31/23 20:36 Troponin T Baseline 8 ng/L (0-10) 05/31/23 20:36 Troponin T 120 Minute 7.96 ng/L (0-10) 05/31/23 21:50 Delta Troponin T -0.04 ABS# (0-10) L 05/31/23 21:50 Total Protein 8.0 g/dL (6.6-8.7) 05/31/23 20:36 Albumin 3.8 g/dL (3.5-5.2) 05/31/23 20:36 Globulin 4.2 g/dL (1.3-4.6) 05/31/23 20:36 All radiology interpretation(s) finalized by discharge EKG Data EKG 1: I personally reviewed and interpreted this EKG as follows: EKG interpretation date: 05/31/23 EKG interpretation time: 20:14 Interpretation: nsr hr [address] or t wave abnormalitis qrs 86 qtc 402 Discharge Plan Discharge Patient Disposition: Home Clinical Impression: Hypertension, Chest pain Condition: Stable Prescriptions: No Action naproxen sodium [Aleve] 220 mg tablet 440 mg PO BID PRN (Reason: Pain) simethicone [Gas Relief (simethicone)] 125 mg capsule 125 mg PO QID PRN (Reason: bloating) omeprazole 20 mg capsule,delayed release(DR/EC) 20 mg PO DAILY lisinopril-hydrochlorothiazide 20-25 mg tablet 1 tab PO DAILY metformin 500 mg tablet extended release 24hr 500 mg PO DAILY simvastatin 10 mg tablet 10 mg PO DAILY clobetasol-emollient 0.05 % cream 1 applic topical BID 14 Days Qty: 30 3RF Rx Instructions: apply pea size amount twice daily for two weeks; then apply twice weekly ketoconazole 2 % cream 1 applic topical DAILY 14 Days Qty: 15 0RF mupirocin 2 % ointment 1 applic topical TID 14 Days Qty: 22 0RF multivitamin Tablet 1 tab PO DAILY PRN (Reason: unknown) metoprolol succinate 50 mg tablet extended release 24 hr 50 mg PO DAILY oxycodone 10 mg tablet 10 mg PO Q6H MDD 4 tabs PRN (Reason: Pain) Gemtesa 75 mg tablet 75 mg PO DAILY acetaminophen [Tylenol Ex Str Rapid Release] 500 mg Tablet 1,000 mg PO Q6H PRN (Reason: Pain) ibuprofen 200 mg Tablet 400 mg PO Q6H PRN (Reason: Pain) tizanidine 4 mg tablet 4 mg PO BID PRN (Reason: muscle spasticity) ropinirole 0.5 mg tablet 0.5 mg PO QPM PRN (Reason: Restless Leg(S)) Discharge Orders: Discharge ED (Routine); Ordered 05/31/23 Ordered By: Jasson Newman Referrals: Isabelle Moss FNP [Primary Care Provider] - 1-3 days Discharge Diet: Advance as tolerated Discharge Activity: Resume usual activity Patient Instructions: Chest Pain (ED), Hypertension (ED) Activity Restrictions/Additional Instructions: increase metoprolol to 50mg bid and increase lisinopril to 40mg daily Coding Level of Care Code ED Rounding Machine Tender for [place] NIH stroke score NIHSS Level Of Consciousness - 1a: 0 Level Of Consciousness Questions - 1b: Both Correct Level Of Consciousness Commands - 1c: Both Correct Best Gaze - 2: Normal Visual Contreras - 3: No Visual Loss Facial Palsy - 4: Normal Motor Arm Right - 5: No Drift Motor Arm Left - 5: No Drift Motor Leg Right - 6: No Drift Motor Leg Left - 6: No Drift Limb Ataxia - 7: Absent Sensory - 8: Normal Best Language - 9: No Aphasia Dysarthia - 10: Normal Extinction And Inattention - 11: 0 Score Total Score: 0
[2023-05-31 21:29] VITALS: BP 181/85; PULSE 77; RESP 16; O2SAT 96
[2023-05-31 21:40] VITALS: BP 168/66; PULSE 81; O2SAT 95
--- NOTE | 2023-05-31 21:48 | ECG_ITS ---
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 Measurements Intervals [place] Rate: 79 P: 55 MN: 154 QRS: 27 QRSD: 94 T: 45 QT: 393 QTc: 452 Interpretive Statements SINUS RHYTHM INCOMPLETE RIGHT BUNDLE BRANCH BLOCK [90+ ms QRS DURATION, TERMINAL R IN V1/V2, 40+ ms S IN I/aVL/V4/V5/V6] Compared to ECG 10/09/2022 13:13:45 Incomplete right bundle-branch block now present Electronically Signed On 05-31-2023 23:10:05 PRODUCTION ASSISTANT by Kunal Deluna M.D. [email or web address] [email or web address].Kiwi/store/OM/[id number]
[2023-05-31 22:13] LABS: Troponin 5 2HR 7.96 ng/L (0-10)
[2023-05-31 22:16] LABS: Troponin 5 2HR Delta -0.04 ABS# (0-10)
[2023-05-31] MEDS: meclizine 25 mg tablet 50 MG PO (22:27)
[2023-05-31 22:44] VITALS: BP 192/71; PULSE 77; O2SAT 96
[2023-05-31 22:54] VITALS: BP 163/68; PULSE 74; RESP 17; O2SAT 96
== END 2023-05-31 22:54 | disposition home or self-care (01) ==
PROVIDERS: Emergency Provider Emergency Medicine; PCP Nurse Practitioner Family
DX: I10 Essential (primary) hypertension (principal); R07.9 Chest pain, unspecified; Z79.84 Long term (current) use of oral hypoglycemic drugs; F17.210 Nicotine dependence, cigarettes, uncomplicated
CPT/HCPCS: 71045; 80053; 84484; 85025; 93005; 96374; 99285; J0360; J8597

== ENCOUNTER 2023-06-18 08:08 | Outpatient (CLI) | payer MEDICARE, MEDICAID, SELFPAY ==
[2023-06-18 08:12] VITALS: BMI 34.2
--- NOTE | 2023-06-18 08:18 | ECG_ITS ---
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 Interpretive Statements NAME OF STUDY: LEXISCAN SESTAMIBI STRESS TEST INDICATION: Chest Pain; Shortness of Breath PROCEDURE: At the baseline, the EKG revealed normal sinus rhythm with a normal ST Ts.. The baseline heart was 60 bpm with a blood pressue of 145/85 mm of Hg Lexiscan was infused over a period of 20 seconds. A total of 0.4 milligrams of Lexiscan was infused. The stress phase was continued for a total of 5 minutes. Heart rate at the end of the stress phase was 79 bpm with a blood pressure 190/95 mm of Hg. The EKG at the peak infusion revealed no significant changes. Sestamibi was injected 20 seconds after the Lexiscan infusion. Heart rate at the end of the recovery phase was 72 bpm with a blood pressure of 193/91 mm of Hg. CONCLUSION: 1. No significant EKG changes with the LexiScan infusion 2. No LexiScan induced chest pain or cardiac arrhythmia 3. Normal blood pressure and heart rate response 4. Sestamibi/sestamibi perfusion scan pending; see separate report. Electronically Signed On 06-19-2023 15:12:50 TELEPHONE COLLECTOR by Srinath Christian M.D. [email or web address].Dine in/store/[id number]
--- NOTE | 2023-06-18 08:19 | NMCV_ITS ---
NM omid perf SPECT r/s* [id number] Elizabeth Watson Age: 68 Gender: F : 1955 Exam Date: 06/18/2023 09:08 Ordering Phys: Isabelle Moss Technologist: SCOUT Mcdaniel Exam Location: [facility] Indications: HYPERTENSION, HYPERTENSIVE CRISIS STRESS TEST Please see separate stress test report in [facility] for full findings IMAGE PROTOCOL Rest/Stress 1 Lexiscan Day Radiopharmaceutical Dose (mCi) Administration Site Administered by Rest: Tc-99m 10.3 IV SCOUT Mendez Sestamibi Stress:Tc-99m 32.8 IV SCOUT Mendez Sestamibi Rest: 18-Jun-2023 60 Discovery 630 Stress: 18-Jun-2023 30 Discovery 630 0.4mg Lexiscan. Supine position only as patient was unable to lay prone. SPECT RESULTS Technical Quality: Excellent Raw Data Analysis: Normal Image Corrections: No attenuation or motion correction applied Summed Stress Score: 0 Summed Rest Score: 0 Summed Difference Score: 0 PERFUSION FINDINGS Uniform myocardial tracer uptake. No significant perfusion abnormalities. FUNCTIONAL RESULTS (calculated via Gated SPECT) Stress Image LV EF (%): 90 Stress EDV (mL):71 TID: 0.98 Stress ESV (mL):7 FUNCTIONAL FINDINGS: Segmental wall motion analysis revealing no gross wall motion abnormalities IMPRESSIONS 1. Uniform myocardial tracer uptake with no severe perfusion abnormalities. 2. Normal LV ejection fraction of 90%. 3. LV wall motion analysis revealing no gross wall motion abnormalities. 4. Normal LV volume Low probability for coronary ischemia, based on the above findings No similar previous studies are available for comparison Dr Srinath Christian MD [facility] (Electronically Signed) Final Date: 18 June 2023 18:24 S
[2023-06-18] MEDS: regadenoson 0.4 Mg/5 ml Syringe 0.400000000000000022 MG IVP (09:54)
[2023-06-18 10:43] VITALS: BP 191/93; PULSE 72
== END 2023-06-18 08:09 | disposition home or self-care (01) ==
LOC: CDL 08:09
PROVIDERS: PCP Nurse Practitioner Family; Visit Provider Nurse Practitioner Family
DX: I16.9 Hypertensive crisis, unspecified (principal); I10 Essential (primary) hypertension; R07.9 Chest pain, unspecified; R06.02 Shortness of breath
CPT/HCPCS: 36415; 78452; 93017; 96374; A9500; J2785

== ENCOUNTER 2023-08-30 12:47 | Outpatient (CLI) | payer MEDICARE, MEDICAID, SELFPAY ==
--- NOTE | 2023-08-30 12:52 | MM_ITS ---
WS: [id number] BILATERAL 3D TOMOSYNTHESIS DIGITAL SCREENING MAMMOGRAPHY WITH CAD CLINICAL INFORMATION: SCREENING HISTORY: Screening mammogram. No current complaints. COMPARISON: 2022 TECHNIQUE: Bilateral CC and MLO views. FINDINGS: Scattered fibroglandular densities bilaterally. No suspicious focal mass, asymmetry, calcifications, or architectural distortion. No evidence of malignancy. Incidental punctate and lucent centered calci fications. Previously described simple cyst RIGHT breast has nearly resolved. MM/[place] [id number] IMPRESSION: BI-RADS: 2-Benign FOLLOW UP: 1 Year Follow-up Recommend return to annual screening mammography.
== END 2023-08-30 12:48 | disposition home or self-care (01) ==
LOC: RAD 12:47
PROVIDERS: PCP Nurse Practitioner Family; Visit Provider Nurse Practitioner Family
DX: Z12.31 Encounter for screening mammogram for malignant neoplasm of breast (principal)
CPT/HCPCS: 77063; 77067

== ENCOUNTER → 2024-06-21 12:56 | Outpatient (BNVA) | payer MEDICARE, MEDICAID, SELFPAY | PROVIDERS: PCP Nurse Practitioner Family; Visit Provider Surgery | DX: K21.9 Gastro-esophageal reflux disease without esophagitis (principal) | CPT/HCPCS: 99204 ==

== ENCOUNTER 2024-06-29 08:54 | Day surgery (SDC) | payer MEDICARE, SELFPAY ==
[2024-06-29 09:08] VITALS: BP 165/86; PULSE 72; RESP 18; TEMP 36.4; O2SAT 96
[2024-06-29 09:20] VITALS: BMI 37.1
--- NOTE | 2024-06-29 09:26 | W.PM.OPSUD ---
Surgery/Procedure H&P Update DATE OF PROCEDURE: June 29, 2024 DATE H&P PERFORMED: 06/21/24 H&P UPDATE INFORMATION: I have reviewed H&P completed within last 30 days, I have examined patient prior to procedure, No changes to prior documentation and H&P is in [facility] EMR on date indicated PLANNED PROCEDURE: Operation Date: 06/29/24 10:20 Proposed Procedures p EGD Dilation W/ Balloon [id number], K21.9(Not Applicable) - Rex Torres MD
[2024-06-29] MEDS: sodium chloride 0.9% 1,000 ML 30 ML IV (09:28)
--- NOTE | 2024-06-29 09:31 | P.ANESASSM_ITS ---
Pre-Anesthetic Assessment Height/Weight: Height 1.68 m Weight 104.326 kg Temp Pulse Resp BP Pulse Ox O2 Del Method 97.5 F L 72 18 165/86 96 Room Air 06/29/24 09:08 06/29/24 09:08 06/29/24 09:08 06/29/24 09:08 06/29/24 09:08 06/29/24 09:08 Preop Diagnosis: GERDnone Operation Date: 06/29/24 10:20 Proposed Procedures p EGD Dilation W/ Balloon 23642, K21.9(Not Applicable) - Rex Torres MD Familial anesthetic complications: none Was Beta Raphael taken within 24 hours: Yes Was Clonidine taken within 24 hours: N/A Last intake: Intake Last Liquid Date 06/28/24 Last Liquid Time 23:00 Last Solid Date 06/28/24 Last Solid Time 20:00 Social Tobacco and No alcohol 150 pack(s) per day Exam alert, oriented x 3, clear to auscultation bilaterally and regular rate & rhythm Airway Mallampati: Class II Comments: Comments: teeth intact Pulmonary Sleep Apnea probable COPD, albuterol given preop CV/HEM Hypertension Pt. states was told had a murmur in the past, s1s2 regular rate and rhythm to auscultation None reported Hepatic None reported GI Gastroesophageal Reflux Disease Metabolic Diabetes Mellitus and Morbid Obesity [facility] Fibromyalgia on opioid therapy Neuropsych None reported Anesthetic Plan ASA status: 3 Anesthesia: MAC Risk of > 500 ml blood loss (7ml/kg in children): No Medications/Allergies Home Medications ?Medication ?Instructions ?Recorded ?Confirmed ?Last Taken ?Type naproxen sodium 220 mg tablet 440 mg PO BID PRN Pain 0 05/08/19 06/29/24 06/28/24 History (Aleve) simethicone 125 mg capsule (Gas 125 mg PO QID PRN bloa ting 05/08/19 06/29/24 Unknown History Relief (simethicone)) acetaminophen 500 mg tablet 1,000 mg PO Q6H PRN Pain 0 06/19/22 06/29/24 06/27/24 History metoprolol succinate 50 mg 50 mg PO BID 06/19/2206/2906/29/24 History tablet,extended release 24 hr multivitamin 1 tab PO DAILY PRN unknown 0 06/19/22 06/29/2406/28/25 History oxycodone 10 mg tablet 10 mg PO QID PRN Pain 06/29/24 06/29/24 History tizanidine 4 mg tablet 4 mg PO BID PRN muscle spast icity 06/19/22 06/29/24 06/28/24 History amlodipine 5 mg tablet 5 mg PO QDAY 06/21/2406/29/24 History dulaglutide 0.75 mg/0.5 mL 2.5 mg SUBCUT .once a week 06/21/24 06/29/24 Unknown History subcutaneous [facility] albuterol sulfate 90 mcg/actuation 2 puff inhalation Q 4H PRN 06/27/24 06/29/24 Unknown History aerosol inhaler Shortness Of Breath Or Wheez ing budesonide 160 mcg-glycopyr 9 2 inh inhalation BID 08/1806/29/24 06/27/24 History mcg-formot 4.8 mcg/actuation HFA inhaler (Breztri [employer]) esomeprazole magnesium 20 mg 20 mg PO DAILY 06/27/24 0 06/29/24 06/28/24 History capsule,delayed release ropinirole 1 mg tablet 1 mg PO BEDTIME 06/27/2410/1806/28/24 History Allergies Allergy/AdvReac Type Severity Reaction Status Date / Time gabapentin Allergy ADR-Dizzine Verified 06/29/24 09:11 ss hydrochlorothiazide Allergy tongue Verified 06/29/24 09:11 swelling hydrocodone Allergy ADR-Nausea Verified 06/29/24 09:11 lisinopril Allergy tongue Verified 06/29/24 09:11 swelling milnacipran (From Savella) Allergy does not Verified 06/29/24 09:11 remember pregabalin (From Lyrica) Allergy does not Verified 06/29/24 09:11 remember reaction Current Medications Generic Name Dose Route Start Last Admin Trade Name Freq PRN Reason Stop Dose Admin Sodium Chloride 1,000 mls @ 30 mls/hr 06/29/24 09:15 06/29/24 09:28 Sodium Chloride 0.9% IV 30 mls/hr .Q24H JEWELL Administration PFSH Anesthesia Medical History Hypertension Smoker unmotivated to quit Tobacco abuse Opioid contract exists Encounter for long-term use of opiate analgesic Chronic lumbar radiculopathy Chronic migraine Back pain, lumbosacral Cervical radiculopathy Neck pain Fibromyalgia Surgical History (Updated 06/21/24 @ 13:[address]) History of lumpectomy History of left oophorectomy S/P colonoscopy 04/21/19 - Diverticulosis. Repeat in 5 years. S/P cervical spinal fusion S/P appendectomy Family History Mother Cancer Father Lung disease Social History Smoking and tobacco/nicotine status: current every day tobacco/nicotine user cigarettes Packs smoked per day: 1 Alcohol intake: never Substance/Drug Use: never Lives independently: Yes Data Anesthesia Cardiac Studies: Sestamibi Stress Test (Cardiology) 06/18
[2024-06-29 10:36] VITALS: BP 118/63; PULSE 69; RESP 19; TEMP 36.3; O2SAT 92
[2024-06-29 10:51] VITALS: BP 110/68; PULSE 66; RESP 18; O2SAT 93
[2024-06-29 11:00] VITALS: BP 146/59; PULSE 64; RESP 18; O2SAT 97
--- NOTE | 2024-06-29 11:05 | ANE.PACU2 ---
Inpatient post-anesthesia follow up: Airway intact: Yes Vital signs: Temperature 97.4 F Pulse Rate 64 Respiratory Rate 18 Blood Pressure 146/59 Pulse Oximetry 97 Oxygen Delivery Me thod Room Air Oxygen Flow Rate Fraction of Inspir ed Oxygen Hydration adequate: Yes Nausea and vomiting: No Pain level: 1 Mental status: Baseline
== END 2024-06-29 11:10 | disposition home or self-care (01) ==
PROVIDERS: PCP Nurse Practitioner Family; Visit Provider Surgery
DX: K29.50 Unspecified chronic gastritis without bleeding (principal); K29.00 Acute gastritis without bleeding; R13.10 Dysphagia, unspecified; K44.9 Diaphragmatic hernia without obstruction or gangrene; G47.30 Sleep apnea, unspecified; J44.9 Chronic obstructive pulmonary disease, unspecified; I10 Essential (primary) hypertension; K21.9 Gastro-esophageal reflux disease without esophagitis; E11.9 Type 2 diabetes mellitus without complications; E66.01 Morbid (severe) obesity due to excess calories; Z68.37 Body mass index [BMI] 37.0-37.9, adult; Z79.899 Other long term (current) drug therapy; Z79.85 Long-term (current) use of injectable non-insulin antidiabetic drugs; M79.7 Fibromyalgia; Z79.891 Long term (current) use of opiate analgesic; Z88.8 Allergy status to other drugs, medicaments and biological substances; Z88.5 Allergy status to narcotic agent; F17.210 Nicotine dependence, cigarettes, uncomplicated; Z98.1 Arthrodesis status
CPT/HCPCS: 43239; 88305; 88342; J2704; J3535; J7030

== ENCOUNTER → 2024-07-11 10:54 | Outpatient (BNVA) | payer MEDICARE, SELFPAY | PROVIDERS: PCP Nurse Practitioner Family; Visit Provider Surgery | DX: Z09 Encounter for follow-up examination after completed treatment for conditions other than malignant neoplasm (principal) | CPT/HCPCS: 99213 ==